=== PATIENT | female | born 1935 | race Hispanic/Latino ===

== ENCOUNTER 2016-08-14 15:51 | Inpatient (IN) | payer MEDICARE, OTHER ==
[2016-08-14] MEDS ORDERED: Sodium Chloride 0.9% 500 ML IV ONE ×2 (17:33→17:46)
[2016-08-14 17:50] LABS: BASO # 0.1 K/uL (0.0-0.2); BASO % 0.5 % (0.0-2.0); EOS # 0.2 K/uL (0.0-0.7); EOS % 2.3 % (0.0-4.0); HEMATOCRIT 32.5 % (34.0-47.0); LYMPH # 0.9 K/uL (1.0-4.3); LYMPH % 8.6 % (20.0-40.0); MEAN CORPUSCULAR HEMOGLOBIN 31.9 pg (27.0-31.0); MEAN CORPUSCULAR HGB CONC 33.7 g/dL (33.0-37.0); MEAN PLATELET VOLUME 7.7 fL (7.2-11.7); MONO # 0.7 K/uL (0.0-0.8); MONO % 7.1 % (0.0-10.0); NRBC % 0.1 % (0.0-2.0); PLATELET COUNT 229 K/uL (130-400); RED CELL DISTRIBUTION WIDTH 13.9 % (11.5-14.5)
[2016-08-14 17:55] LABS: MEAN CELL VOLUME 94.7 fL (81.0-99.0); WHITE BLOOD COUNT 9.9 K/uL (4.8-10.8)
[2016-08-14 17:57] LABS: CHLORIDE 105 mmol/L (98-107); POTASSIUM 4.4 mmol/L (3.6-5.2); SODIUM 147 mmol/L (132-148)
[2016-08-14 18:00] LABS: ALB/GLOB RATIO 1.2 (1.0-2.1); ALKALINE PHOSPHATASE 69 U/L (38-126); ALT/SGPT 22 U/L (9-52); AST/SGOT 16 U/L (14-36); BILIRUBIN,TOTAL 0.3 mg/dL (0.2-1.3); BLOOD UREA NITROGEN 45 mg/dL (7-17); CARBON DIOXIDE 26 mmol/L (22-30); GFR AFRICAN-AMERICAN > 60; GLUCOSE,RANDOM 95 mg/dL (65-105); TOTAL PROTEIN 5.7 g/dL (6.3-8.3)
[2016-08-14 18:01] LABS: CALCIUM 9.1 mg/dl (8.6-10.4)
--- NOTE | 2016-08-14 18:06 | RAD ---
PROCEDURE: CHEST RADIOGRAPH, 1 VIEW HISTORY: SOB COMPARISON: 06/15/2016. FINDINGS: LUNGS: Clear. PLEURA: No pneumothorax or pleural fluid seen. CARDIOVASCULAR: No radiographic findings to suggest acute or significant cardiovascular disease. OSSEOUS STRUCTURES: No significant abnormalities. VISUALIZED UPPER ABDOMEN: Normal. OTHER FINDINGS: None. IMPRESSION: No active disease. No acute/significant interval changes.
[2016-08-14 18:25] LABS: BASOPHIL 2 % (0-2); NEUTROPHIL 84 % (50-75); TOTAL CELLS COUNTED 100
--- NOTE | 2016-08-14 18:31 | C.PDOC ---
History Of Present Illness 80 y/o female sent to ED from rehab center. History limited due to patient condition. No significant pmhx. Nonsmoker. Pt was admitted here 06/2016 secondary to fall at home, pt has been in rehab center ever since. Pt was being assisted to toilet today when she fell asleep/LOC episode. Pt states "I'm having a terrible day" and has no specific complaints. Pt is confused as to her whereabouts and asks where her is. Time Seen by Provider: 08/14/16 17:22 Chief Complaint (Nursing): Syncope History Per: Patient History/Exam Limitations: clinical condition Recent travel outside of the [place]: No - Symptoms Of CVA Recent Head Trauma: No Past Medical History Reviewed: Historical Data, Nursing Documentation, Vital Signs Vital Signs: Last Vital Signs Temp 99.2 F 08/14/16 17:35 Pulse 120 H 08/14/16 17:35 Resp 18 08/14/16 17:35 BP 150/100 H 08/14/16 17:35 Pulse Ox 97 08/14/16 18:35 - Medical History PMH: HTN Family History: States: Unknown Family Hx, Hypertension - Social History Hx Alcohol Use: No Hx Substance Use: No - Immunization History Hx Tetanus Toxoid Vaccination: No Hx Influenza Vaccination: No Hx Pneumococcal Vaccination: No Review Of Systems Review Of Systems: ROS cannot be obtained secondary to pt's inabilty to answer questions. Physical Exam - Physical Exam Appears: Non-toxic, No Acute Distress Skin: Warm, Dry, Rash (diffuse throughout body) Head: Atraumatic, Normacephalic, No Swelling, No Abrasion, No Laceration Oral Mucosa: Moist Neck: Normal ROM, No Midline Cervical Tenderness, No Paracervical Tenderness, Supple Chest: Symmetrical Cardiovascular: Rhythm Regular, No Murmur Respiratory: Normal Breath Sounds, No Rales, No Rhonchi, No Wheezing Gastrointestinal/Abdominal: No Soft (firm), No Tenderness Extremity: Normal ROM Extremity: Bilateral: Atraumatic Neurological/Psych: Other (awake, unable to answer intelligent questions) ED Course And Treatment - Laboratory Results Result Diagrams: 08/14/16 17:45 08/14/16 17:45 O2 Sat by Pulse Oximetry: 97 (on room air) Pulse Ox Interpretation: Normal Progress Note: Plan: EKG, labs, CXR, UA, aspirin. Admit pt for syncope and CHF Medical Decision Making Medical Decision Making: Multiple calls to Dr. Ramirez. spoke with Dr. Stallings, states OneidaVitaliy Ramirez is aware of the patient and wants her admitted to his service. Disposition Discussed With : Tiburcio Ruffin Counseled Patient/Family Regarding: Studies Performed - Disposition Disposition: HOSPITALIZED Disposition Time: 18:50 Condition: SERIOUS - Clinical Impression Clinical Impression: Syncope, CHF (congestive heart failure) - Scribe Statement The provider has reviewed the documentation as recorded by the Beatriz Smallwood Provider Attestation: All medical record entries made by the Beatriz were at my direction and personally dictated by me. I have reviewed the chart and agree that the record accurately reflects my personal performance of the history, physical exam, medical decision making, and the department course for this patient. I have also personally directed, reviewed, and agree with the discharge instructions and disposition. Decision To Admit - Pt Status Changed To: Hospital Disposition Of: Inpatient - Admit Certification Admit to Inpatient:: After my assessment, the patient will require hospitalization for at least two midnights. This is because of the severity of symptoms shown, intensity of services needed, and/or the medical risk in this patient being treated as an outpatient. - InPatient: Physician Admission Certification: I certify that this patient requires 2 or more midnights of care for the following reason:: syncope, elevated troponin, chf, possible [facility] - . Bed Request Type: Telemetry Patient Diagnosis: Syncope, CHF (congestive heart failure)
--- NOTE | 2016-08-14 19:27 | CP.PCM.HP ---
History of Present Illness - History of Present Illness History of Present Illness: 80-year-old female sent to ED from rehab center. History limited due to patient condition. No significant past medical historys. Non-smoker. Patient was admitted here 06/2016 secondary to fall at home, patient has been in the rehab center ever since. Patient was being assisted to toilet today when she fell asleep/LOC episode. Patient states "I am having a terrible day" and has no specific complaint. Patient is confused as to her where abouts and asks where is. Present on Admission - Present on Admission Any Indicators Present on Admission: No Past Patient History - Past Medical History & Family History Past Medical History?: No - Past Social History Smoking Status: Never Smoked - CARDIAC Hx Hypertension: Yes - PULMONARY Hx Respiratory Disorders: No - NEUROLOGICAL Hx Neurological Disorder: No - HEENT Hx HEENT Problems: No - RENAL Hx Chronic Kidney Disease: No - ENDOCRINE/METABOLIC Hx Endocrine Disorders: No - HEMATOLOGICAL/ONCOLOGICAL Hx Blood Disorders: No - INTEGUMENTARY Hx Dermatological Problems: No - MUSCULOSKELETAL/RHEUMATOLOGICAL Hx Musculoskeletal Disorders: No Hx Falls: Yes - GASTROINTESTINAL Hx Gastrointestinal Disorders: No - GENITOURINARY/GYNECOLOGICAL Hx Genitourinary Disorders: No - PSYCHIATRIC Hx Substance Use: No - SURGICAL HISTORY Hx Surgeries: No - ANESTHESIA Hx Anesthesia: No Hx Anesthesia Reactions: No Meds Allergies/Adverse Reactions: Allergies Allergy/AdvReac Type Severity Reaction Status Date / Time No Known Allergies Allergy Verified 06/15/16 16:08 Physical Exam - Constitutional Appears: Well - Head Exam Head Exam: ATRAUMATIC, NORMAL INSPECTION, NORMOCEPHALIC - Eye Exam Eye Exam: EOMI, Normal appearance, PERRL Pupil Exam: NORMAL ACCOMODATION, PERRL - ENT Exam ENT Exam: Mucous Membranes Moist, Normal Exam - Neck Exam Neck exam: Positive for: Normal Inspection - Respiratory Exam Respiratory Exam: Decreased Breath Sounds - Cardiovascular Exam Cardiovascular Exam: REGULAR RHYTHM, +S1, +S2 - GI/Abdominal Exam GI & Abdominal Exam: Diminished Bowel Sounds, Soft - Rectal Exam Rectal Exam: Deferred Results - Vital Signs Recent Vital Signs: Last Vital Signs Temp 99.2 F 08/14/16 17:35 Pulse 120 H 08/14/16 17:35 Resp 18 08/14/16 17:35 BP 150/100 H 08/14/16 17:35 Pulse Ox 97 08/14/16 18:53 - Labs Result Diagrams: 08/20/16 07:30 08/20/16 09:59 Assessment & Plan (1) Acute diastolic (congestive) heart failure Status: Acute (2) Altered mental status Status: Acute (3) Bacteremia Status: Acute (4) CHF (congestive heart failure) Status: Acute (5) Dehydration Status: Acute (6) Fall Status: Acute (7) NSTEMI (non-ST elevation myocardial infarction) Status: Acute (8) Near syncope Status: Acute (9) Sepsis Status: Acute (10) Staph aureus infection Status: Acute (11) Syncope Status: Acute (12) Uncontrolled hypertension Status: Acute (13) Urinary tract infection Status: Acute (14) Dementia Status: Chronic - Assessment and Plan (Free Text) Plan: protonix lovenox cardio neuro med home med ct head prn romix3 asp etcs megace encurage po feeding
--- NOTE | 2016-08-14 20:34 | CP.PCM.CON ---
History of Present Illness - History of Present Illness History of Present Illness: 80 year old with dementia, HTN. admitted from rehab with progressive weakness, near syncope. now with elevated BNP and TNI, observe BP enzymes. treatment medically for NSTEMI, non agressive with poor over prognosis, latest echo at 06/29 with nl LV contractility, no Review of Systems - Review of Systems Systems not reviewed;Unavailable: Dementia - Constitutional Constitutional: Anorexia, Weakness - EENT Eyes: absent: Discharge Ears: absent: Ear Discharge Nose/Mouth/Throat: absent: Epistaxis - Cardiovascular Cardiovascular: absent: Acrocyanosis, Chest Pain, Diaphoresis, Leg Edema, Palpitations, Syncope - Respiratory Respiratory: absent: Cough, Dyspnea, Hemoptysis - Gastrointestinal Gastrointestinal: absent: Abdominal Pain, Diarrhea, Vomiting - Genitourinary Genitourinary: absent: Difficulty Urinating - Reproductive: Female Reproductive:Female: Post Menopausal Past Patient History - Past Medical History & Family History Past Medical History?: No - Past Social History Smoking Status: Never Smoked - CARDIAC Hx Hypertension: Yes - PULMONARY Hx Respiratory Disorders: No - NEUROLOGICAL Hx Neurological Disorder: No - HEENT Hx HEENT Problems: No - RENAL Hx Chronic Kidney Disease: No - ENDOCRINE/METABOLIC Hx Endocrine Disorders: No - HEMATOLOGICAL/ONCOLOGICAL Hx Blood Disorders: No - INTEGUMENTARY Hx Dermatological Problems: No - MUSCULOSKELETAL/RHEUMATOLOGICAL Hx Musculoskeletal Disorders: No Hx Falls: Yes - GASTROINTESTINAL Hx Gastrointestinal Disorders: No - GENITOURINARY/GYNECOLOGICAL Hx Genitourinary Disorders: No - PSYCHIATRIC Hx Substance Use: No - SURGICAL HISTORY Hx Surgeries: No - ANESTHESIA Hx Anesthesia: No Hx Anesthesia Reactions: No Meds Allergies/Adverse Reactions: Allergies Allergy/AdvReac Type Severity Reaction Status Date / Time No Known Allergies Allergy Verified 06/15/16 16:08 - Medications Medications: Current Medications Acetaminophen (Tylenol 325mg Tab) 650 mg PO Q4 PRN PRN Reason: Pain, Mild (1-3) Aspirin (Aspirin) 325 mg PO DAILY [facility] Bacitracin (Bacitracin) 0 gm TOP TID [facility] Enoxaparin Sodium (Lovenox) 30 mg SC DAILY [facility] Home Med (Lisinopril [Qbrelis]) 30 ml PO BID [facility] Magnesium Hydroxide (Milk Of Magnesia) 30 ml PO DAILY [facility] Megestrol Acetate (Megace) 400 mg PO DAILY [facility] Metoprolol Tartrate (Lopressor) 25 mg PO BID [facility] Pantoprazole Sodium (Protonix Ec Tab) 40 mg PO DAILY [facility] Rosuvastatin Calcium (Crestor) 10 mg PO HS [facility] Silver Sulfadiazine (Silvadene 1% 20 Gm) 1 ea TOP BID [facility] Physical Exam - Constitutional Appears: Non-toxic - Head Exam Head Exam: ATRAUMATIC - Eye Exam Eye Exam: EOMI - ENT Exam ENT Exam: Mucous Membranes Moist - Neck Exam Neck exam: Negative for: Lymphadenopathy, Thyromegaly - Respiratory Exam Respiratory Exam: Clear to Auscultation Bilateral. absent: Rales - Cardiovascular Exam Cardiovascular Exam: REGULAR RHYTHM, Systolic Murmur - GI/Abdominal Exam GI & Abdominal Exam: Normal Bowel Sounds. absent: Organomegaly - Rectal Exam Rectal Exam: Deferred - Extremities Exam Extremities exam: Positive for: normal capillary refill. Negative for: calf tenderness - Neurological Exam Neurological exam: Alert, Oriented x3 - Psychiatric Exam Psychiatric exam: Normal Mood - Skin Skin Exam: Dry Results - Vital Signs Recent Vital Signs: Last Vital Signs Temp 99.2 F 08/14/16 17:35 Pulse 120 H 08/14/16 17:35 Resp 18 08/14/16 17:35 BP 150/100 H 08/14/16 17:35 Pulse Ox 97 08/14/16 18:53 - Labs Result Diagrams: 08/15/16 11:06 08/15/16 11:06 Assessment & Plan (1) CHF (congestive heart failure) Status: Acute Comment: medical treatment, supportive symptomatic (2) NSTEMI (non-ST elevation myocardial infarction) Status: Acute Comment: probable LV diastolic acute over chronic (3) Dementia Status: Chronic
[2016-08-14 21:08] LABS: RBC URINE < 1 /hpf (0-3); URINE BILIRUBIN NEGATIVE (NEGATIVE); URINE BLOOD NEGATIVE (NEGATIVE); URINE GLUCOSE (UA) NORMAL (Normal); URINE KETONE NEGATIVE (NEGATIVE); URINE LEUKOCYTE ESTERASE NEG Leu/uL (Negative); URINE PROTEIN NEGATIVE (NEGATIVE); URINE UROBILINOGEN NORMAL mg/dL (0.2-1.0); WBC URINE 1 /hpf (0-5)
[2016-08-14 21:09] LABS: URINE COLOR YELLOW (YELLOW)
[2016-08-14 22:48] LABS: FREE T4 1.38 ng/dL (0.78-2.19)
[2016-08-14 23:02] LABS: THYROID STIMULATING HORMONE 4.26 mIU/L (0.46-4.68)
[2016-08-14 23:37] LABS: FOLATE 17.2 ng/mL
--- NOTE | 2016-08-15 08:23 | CT ---
PROCEDURE: CT HEAD WITHOUT CONTRAST. HISTORY: R/O BLEED. Headache. COMPARISON: None available. TECHNIQUE: Axial computed tomography images were obtained through the head/brain without intravenous contrast. Radiation dose: Total exam DLP = 1555 mGy-cm. This CT exam was performed using one or more of the following dose reduction techniques: Automated exposure control, adjustment of the mA and/or kV according to patient size, and/or use of iterative reconstruction technique. FINDINGS: HEMORRHAGE: No intracranial hemorrhage. BRAIN: No mass effect or edema. Scattered focal lucencies in the subcortical and periventricular white matter suggestive for chronic microvascular ischemic change. Moderate volume loss consistent with atrophy. VENTRICLES: Unremarkable. No hydrocephalus. CALVARIUM: Unremarkable. PARANASAL SINUSES: Unremarkable as visualized. No significant inflammatory changes. MASTOID AIR CELLS: Unremarkable as visualized. No inflammatory changes. OTHER FINDINGS: Moderate atherosclerotic calcification. IMPRESSION: Age related atrophy and chronic white matter ischemic changes. No acute intracranial abnormality. If focal neurologic deficit persists, consider MRI. These findings were preliminarily reported at 10:04 p.m. on 08/14/[address] Nando Barry from [facility].
[2016-08-15] MEDS ORDERED: LISINOPRIL PO SCH (10:00)
[2016-08-15] MEDS: Bacitracin Ointment 30 GM TUBE TOP SCH ×2 (10:45→13:21)
[2016-08-15] MEDS: Enoxaparin 30 mg Syringe SC SCH (10:50)
[2016-08-15] MEDS: Pantoprazole 40 mg EC Tab PO SCH (10:51)
[2016-08-15] MEDS: Magnesium Hydroxide Susp 30 ml UD PO SCH (10:51)
[2016-08-15] MEDS: Silver Sulfadiazine 1% Cream (20 gm) TOP SCH (10:51)
[2016-08-15] MEDS: Megestrol Acetate 40 mg/ml Cup PO SCH (10:51)
[2016-08-15 11:12] LABS: HEMATOCRIT 28.6 % (34.0-47.0); MEAN CELL VOLUME 94.2 fL (81.0-99.0); MEAN CORPUSCULAR HEMOGLOBIN 30.9 pg (27.0-31.0); MEAN CORPUSCULAR HGB CONC 32.8 g/dL (33.0-37.0); MEAN PLATELET VOLUME 7.8 fL (7.2-11.7); RED CELL DISTRIBUTION WIDTH 13.9 % (11.5-14.5); WHITE BLOOD COUNT 10.6 K/uL (4.8-10.8)
[2016-08-15 11:49] LABS: CHLORIDE 106 mmol/L (98-107); SODIUM 143 mmol/L (132-148)
[2016-08-15 11:51] LABS: ALKALINE PHOSPHATASE 54 U/L (38-126); AST/SGOT 15 U/L (14-36); BILIRUBIN,TOTAL 0.2 mg/dL (0.2-1.3); BLOOD UREA NITROGEN 44 mg/dL (7-17); CARBON DIOXIDE 27 mmol/L (22-30); CHOLESTEROL 101 mg/dL (0-199); GFR AFRICAN-AMERICAN > 60; GLUCOSE,RANDOM 96 mg/dL (65-105); TOTAL PROTEIN 4.7 g/dL (6.3-8.3)
[2016-08-15 11:52] LABS: ALT/SGPT 20 U/L (9-52); CALCIUM 8.4 mg/dl (8.6-10.4)
--- NOTE | 2016-08-15 14:48 | CP.PCM.PN ---
<Shelli Nunes - Last Filed: 08/15/16 14:39> Subjective - Date & Time of Evaluation Date of Evaluation: 08/15/16 Time of Evaluation: 11:35 - Subjective Subjective: Medicine Progress Note- Dr Oneida Green's service Patient seen and examined. Per ED note, the patient was sent to hospital from [facility] after she had an episode of syncope. Patient states that she does not remember falling at the rehab. She is alert and oriented to person and place but does not know the month or the year. Patient is wondering "why has this happened to me" and has a flat affect. On previous admission the patient was evaluated by psychiatrist for capacity level and was determined not to have decision making capacity due to her underlying dementia. Denies fever, chest pain and shortness of breath. Objective - Vital Signs/Intake and Output Vital Signs (last 24 hours): Temp Pulse Resp BP Pulse Ox 98.3 F 103 H 17 149/83 97 08/15/16 07:30 08/15/16 07:30 08/15/16 07:30 08/15/16 10:46 08/15/16 07:30 Intake and Output: 08/15/16 08/15/16 06:59 18:59 Intake Total 400 Balance 400 - Medications Medications: Current Medications Acetaminophen (Tylenol 325mg Tab) 650 mg PO Q4 PRN PRN Reason: Pain, Mild (1-3) Aspirin (Aspirin) 325 mg PO DAILY [facility] Last Admin: 08/15/16 10:45 Dose: 325 mg Bacitracin (Bacitracin) 0 gm TOP TID [facility] Last Admin: 08/15/16 10:45 Dose: 1 applic Enoxaparin Sodium (Lovenox) 30 mg SC DAILY [facility] Last Admin: 08/15/16 10:50 Dose: 30 mg Home Med (Lisinopril [Qbrelis]) 30 ml PO BID [facility] Magnesium Hydroxide (Milk Of Magnesia) 30 ml PO DAILY [facility] Last Admin: 08/15/16 10:51 Dose: 30 ml Megestrol Acetate (Megace) 400 mg PO DAILY [facility] Last Admin: 08/15/16 10:51 Dose: 400 mg Metoprolol Tartrate (Lopressor) 25 mg PO BID [facility] Last Admin: 08/15/16 10:46 Dose: 25 mg Ondansetron HCl (Zofran Inj) 4 mg IVP Q6H PRN PRN Reason: Nausea/Vomiting Pantoprazole Sodium (Protonix Ec Tab) 40 mg PO DAILY [facility] Last Admin: 08/15/16 10:51 Dose: 40 mg Rosuvastatin Calcium (Crestor) 10 mg PO HS [facility] Last Admin: 08/14/16 22:34 Dose: 10 mg Silver Sulfadiazine (Silvadene 1% 20 Gm) 1 ea TOP BID [facility] Last Admin: 08/15/16 10:51 Dose: 1 applic - Labs Labs: 08/15/16 11:06 08/15/16 11:06 PT 11.3 SECONDS (9.7-12.2) 08/15/16 00:22 INR 1.0 08/15/16 00:22 APTT 36 SECONDS (21-34) H 08/15/16 00:22 - Constitutional Appears: Non-toxic, No Acute Distress - Head Exam Head Exam: ATRAUMATIC, NORMOCEPHALIC - Eye Exam Eye Exam: EOMI, Normal appearance - ENT Exam ENT Exam: Mucous Membranes Moist - Respiratory Exam Respiratory Exam: Clear to Ausculation Bilateral, NORMAL BREATHING PATTERN. absent: Rales, Rhonchi, Wheezes, Respiratory Distress - Cardiovascular Exam Cardiovascular Exam: REGULAR RHYTHM, +S1, +S2 - GI/Abdominal Exam GI & Abdominal Exam: Soft, Normal Bowel Sounds. absent: Distended, Firm, Guarding, Rigid - Extremities Exam Extremities Exam: Normal Inspection. absent: Pedal Edema - Neurological Exam Neurological Exam: Alert, Awake. absent: Oriented x3 - Psychiatric Exam Psychiatric exam: Flat Affect, Normal Mood - Skin Skin Exam: Dry, Intact, Normal Color, Warm Assessment and Plan - Assessment and Plan (Free Text) Assessment: (1) NSTEMI LUDY 0.367--> 0.385--> 0.[address] Ruffin consulted- per recommendations treat medically for NSTEMI , non aggressive with poor over prognosis ASA 325mg PO daily Metoprolol tartrate 25mg PO BID Crestor 10mg PO HS (2) CHF 06/15/16 ECHO LV EF 57%, diastolic dysfunction, hypertensive heart disease BNP 4570 Lasix 40mg IV daily (3) HTN Metoprolol tartrate 25mg PO BID Lasix 40mg IV daily Monitor (4) Dementia (5) Prophylactic measures SCDs Lovenox 30mg SC daily Protonix 40mg PO daily All management and orders per Dr Oneida green. Discussed with attending. <Azeb Green S - Last Filed: 08/15/16 22:57> Objective - Vital Signs/Intake and Output Vital Signs (last 24 hours): Temp Pulse Resp BP Pulse Ox 98.1 F 92 H 20 200/109 H 100 08/15/16 15:39 08/15/16 15:39 08/15/16 15:39 08/15/16 20:22 08/15/16 15:39 Intake and Output: 08/15/16 08/16/16 18:59 06:59 Intake Total 400 Balance 400 - Medications Medications: Current Medications Acetaminophen (Tylenol 325mg Tab) 650 mg PO Q4 PRN PRN Reason: Pain, Mild (1-3) Aspirin (Aspirin) 325 mg PO DAILY [facility] Last Admin: 08/15/16 10:45 Dose: 325 mg Bacitracin (Bacitracin) 0 gm TOP TID [facility] Last Admin: 08/15/16 10:45 Dose: 1 applic Enoxaparin Sodium (Lovenox) 30 mg SC DAILY [facility] Last Admin: 08/15/16 10:50 Dose: 30 mg Furosemide (Lasix) 40 mg IVP DAILY [facility] Last Admin: 08/15/16 16:09 Dose: 40 mg Home Med (Lisinopril [Qbrelis]) 30 ml PO BID [facility] Lisinopril (Zestril) 10 mg PO DAILY [facility] Last Admin: 08/15/16 20:22 Dose: 10 mg Magnesium Hydroxide (Milk Of Magnesia) 30 ml PO DAILY [facility] Last Admin: 08/15/16 10:51 Dose: 30 ml Megestrol Acetate (Megace) 400 mg PO DAILY [facility] Last Admin: 08/15/16 10:51 Dose: 400 mg Metoprolol Tartrate (Lopressor) 25 mg PO BID [facility] Last Admin: 08/15/16 20:22 Dose: 25 mg Ondansetron HCl (Zofran Inj) 4 mg IVP Q6H PRN PRN Reason: Nausea/Vomiting Pantoprazole Sodium (Protonix Ec Tab) 40 mg PO DAILY [facility] Last Admin: 08/15/16 10:51 Dose: 40 mg Rosuvastatin Calcium (Crestor) 10 mg PO [facility] Last Admin: 04/04/17 22:34 Dose: 10 mg Silver Sulfadiazine (Silvadene 1% 20 Gm) 1 ea TOP BID [facility] Last Admin: 08/15/16 10:51 Dose: 1 applic - Labs Labs: 08/15/16 11:06 08/15/16 11:06 PT 11.3 SECONDS (9.7-12.2) 08/15/16 00:22 INR 1.0 08/15/16 00:22 APTT 36 SECONDS (21-34) H 08/15/16 00:22 Attending/Attestation - Attestation I have personally seen and examined this patient.: Yes I have fully participated in the care of the patient.: Yes I have reviewed all pertinent clinical information, including history, physical exam and plan: Yes Notes (Text): 08/15/16 22:57 case seen and discussed with staff and resident mx as agreed
--- NOTE | 2016-08-15 16:52 | CARD ---
APPROVED REPORT EKG Measurement Heart [id number] <Conclusion> Sinus tachycardia Inferior infarct, age undetermined Anterior infarct, age undetermined Abnormal ECG
--- NOTE | 2016-08-15 17:00 | CP.PCM.PN ---
Subjective - Date & Time of Evaluation Date of Evaluation: 08/15/16 Time of Evaluation: 13:00 - Subjective Subjective: no LOC, no sob try to avoid lasix, TNI is trending down, on medical treatment Objective - Vital Signs/Intake and Output Vital Signs (last 24 hours): Temp Pulse Resp BP Pulse Ox 98.1 F 92 H 20 146/73 100 08/15/16 15:39 08/15/16 15:39 08/15/16 15:39 08/15/16 16:09 08/15/16 15:39 Intake and Output: 08/15/16 08/15/16 06:59 18:59 Intake Total 400 Balance 400 - Medications Medications: Current Medications Acetaminophen (Tylenol 325mg Tab) 650 mg PO Q4 PRN PRN Reason: Pain, Mild (1-3) Aspirin (Aspirin) 325 mg PO DAILY [facility] Last Admin: 08/15/16 10:45 Dose: 325 mg Bacitracin (Bacitracin) 0 gm TOP TID [facility] Last Admin: 08/15/16 10:45 Dose: 1 applic Enoxaparin Sodium (Lovenox) 30 mg SC DAILY [facility] Last Admin: 08/15/16 10:50 Dose: 30 mg Furosemide (Lasix) 40 mg IVP DAILY [facility] Last Admin: 08/15/16 16:09 Dose: 40 mg Home Med (Lisinopril [Qbrelis]) 30 ml PO BID [facility] Magnesium Hydroxide (Milk Of Magnesia) 30 ml PO DAILY [facility] Last Admin: 08/15/16 10:51 Dose: 30 ml Megestrol Acetate (Megace) 400 mg PO DAILY [facility] Last Admin: 08/15/16 10:51 Dose: 400 mg Metoprolol Tartrate (Lopressor) 25 mg PO BID [facility] Last Admin: 08/15/16 10:46 Dose: 25 mg Ondansetron HCl (Zofran Inj) 4 mg IVP Q6H PRN PRN Reason: Nausea/Vomiting Pantoprazole Sodium (Protonix Ec Tab) 40 mg PO DAILY [facility] Last Admin: 08/15/16 10:51 Dose: 40 mg Rosuvastatin Calcium (Crestor) 10 mg PO HS [facility] Last Admin: 08/14/16 22:34 Dose: 10 mg Silver Sulfadiazine (Silvadene 1% 20 Gm) 1 ea TOP BID [facility] Last Admin: 08/15/16 10:51 Dose: 1 applic - Labs Labs: 08/15/16 11:06 08/15/16 11:06 PT 11.3 SECONDS (9.7-12.2) 08/15/16 00:22 INR 1.0 08/15/16 00:22 APTT 36 SECONDS (21-34) H 08/15/16 00:22 - Constitutional Appears: Non-toxic - Head Exam Head Exam: ATRAUMATIC - Eye Exam Eye Exam: EOMI - ENT Exam ENT Exam: Mucous Membranes Moist - Neck Exam Neck Exam: absent: Lymphadenopathy, Thyromegaly - Respiratory Exam Respiratory Exam: Clear to Ausculation Bilateral. absent: Rales - Cardiovascular Exam Cardiovascular Exam: REGULAR RHYTHM, Murmur - GI/Abdominal Exam GI & Abdominal Exam: Normal Bowel Sounds. absent: Organomegaly - Rectal Exam Rectal Exam: Deferred - Extremities Exam Extremities Exam: Normal Capillary Refill. absent: Calf Tenderness - Neurological Exam Neurological Exam: Alert - Psychiatric Exam Psychiatric exam: Normal Mood - Skin Skin Exam: Dry Assessment and Plan (1) CHF (congestive heart failure) Status: Acute (2) NSTEMI (non-ST elevation myocardial infarction) Status: Acute (3) Dementia Status: Chronic
--- NOTE | 2016-08-15 18:06 | CP.PCM.PN ---
Subjective - Date & Time of Evaluation Date of Evaluation: 08/15/16 Time of Evaluation: 11:40 - Subjective Subjective: clinically same on iv lasix s/p cardio Dr Laly sanchez Objective - Vital Signs/Intake and Output Vital Signs (last 24 hours): Temp Pulse Resp BP Pulse Ox 98.1 F 92 H 20 146/73 100 08/15/16 15:39 08/15/16 15:39 08/15/16 15:39 08/15/16 16:09 08/15/16 15:39 Intake and Output: 08/15/16 08/15/16 06:59 18:59 Intake Total 400 Balance 400 - Medications Medications: Current Medications Acetaminophen (Tylenol 325mg Tab) 650 mg PO Q4 PRN PRN Reason: Pain, Mild (1-3) Aspirin (Aspirin) 325 mg PO DAILY [facility] Last Admin: 08/15/16 10:45 Dose: 325 mg Bacitracin (Bacitracin) 0 gm TOP TID [facility] Last Admin: 08/15/16 10:45 Dose: 1 applic Enoxaparin Sodium (Lovenox) 30 mg SC DAILY [facility] Last Admin: 08/15/16 10:50 Dose: 30 mg Furosemide (Lasix) 40 mg IVP DAILY [facility] Last Admin: 08/15/16 16:09 Dose: 40 mg Home Med (Lisinopril [Qbrelis]) 30 ml PO BID [facility] Lisinopril (Zestril) 10 mg PO DAILY [facility] Magnesium Hydroxide (Milk Of Magnesia) 30 ml PO DAILY [facility] Last Admin: 08/15/16 10:51 Dose: 30 ml Megestrol Acetate (Megace) 400 mg PO DAILY [facility] Last Admin: 08/15/16 10:51 Dose: 400 mg Metoprolol Tartrate (Lopressor) 25 mg PO BID [facility] Last Admin: 08/15/16 10:46 Dose: 25 mg Ondansetron HCl (Zofran Inj) 4 mg IVP Q6H PRN PRN Reason: Nausea/Vomiting Pantoprazole Sodium (Protonix Ec Tab) 40 mg PO DAILY [facility] Last Admin: 08/15/16 10:51 Dose: 40 mg Rosuvastatin Calcium (Crestor) 10 mg PO HS [facility] Last Admin: 08/14/16 22:34 Dose: 10 mg Silver Sulfadiazine (Silvadene 1% 20 Gm) 1 ea TOP BID [facility] Last Admin: 08/15/16 10:51 Dose: 1 applic - Labs Labs: 08/15/16 11:06 08/15/16 11:06 PT 11.3 SECONDS (9.7-12.2) 08/15/16 00:22 INR 1.0 08/15/16 00:22 APTT 36 SECONDS (21-34) H 08/15/16 00:22 - Constitutional Appears: Well - Head Exam Head Exam: ATRAUMATIC, NORMAL INSPECTION, NORMOCEPHALIC - Eye Exam Eye Exam: EOMI, Normal appearance, PERRL Pupil Exam: NORMAL ACCOMODATION, PERRL - ENT Exam ENT Exam: Mucous Membranes Moist, Normal Exam - Neck Exam Neck Exam: Full ROM, Normal Inspection. absent: Lymphadenopathy - Respiratory Exam Respiratory Exam: Decreased Breath Sounds - Cardiovascular Exam Cardiovascular Exam: REGULAR RHYTHM, +S1, +S2 - GI/Abdominal Exam GI & Abdominal Exam: Soft, Diminished Bowel Sounds - Rectal Exam Rectal Exam: Deferred - Neurological Exam Neurological Exam: Alert, Awake, Oriented x3 Assessment and Plan (1) Acute diastolic (congestive) heart failure Status: Acute (2) Altered mental status Status: Acute (3) Bacteremia Status: Acute (4) CHF (congestive heart failure) Status: Acute (5) Dehydration Status: Acute (6) Fall Status: Acute (7) NSTEMI (non-ST elevation myocardial infarction) Status: Acute (8) Near syncope Status: Acute (9) Sepsis Status: Acute (10) Staph aureus infection Status: Acute (11) Syncope Status: Acute (12) Uncontrolled hypertension Status: Acute (13) Urinary tract infection Status: Acute (14) Dementia Status: Chronic - Assessment and Plan (Free Text) Plan: [place] iv lasix cardio Dr Ruffin on board protonix lovenox f/u cardiac enzymes and labs f/u BCx mx as ordered
--- NOTE | 2016-08-16 07:20 | CON ---
DATE: 08/15/2016 ATTENDING PHYSICIAN: Fede Ramirez MD. The patient is room #663, bed A. REASON FOR CONSULTATION: Syncope. CHIEF COMPLAINT: The patient was brought in to [facility] with a history of syncopal attack in the rehab place. From neurological point, I was called in to evaluate her for further management. HISTORY OF PRESENT ILLNESS: The patient is thinly built, right-handed, 80-year-old female brought in to [facility] with a history of syncopal attack while she was transferring from the bed to the commode. This episode - not associating with tonic-clonic activities. No history of fall, no history of bowel or bladder incontinence at the scene. As per the history, no similar episodes happened in the past. PAST MEDICAL HISTORY: Hypertension. ALLERGIES: No known allergies. PERSONAL HISTORY: Denies smoking or alcohol use. REVIEW OF SYSTEMS: As per H and P. MEDICATIONS: Aspirin, Crestor, Lopressor, Lovenox, Megace, milk of magnesia, Protonix, and Tylenol p.r.n. PHYSICAL EXAMINATION: VITAL SIGNS: Blood pressure 147/81, mean arterial pressure of 103. Respiratory rate is 16, temperature afebrile. NECK: Supple. No carotid bruit. HEART: Sounds regular with a systolic murmur. EXTREMITIES: No edema legs. There is significant distal muscle group atrophy, more pronounced in her both upper extremities, hand muscle groups. No fasciculation at rest. NEUROLOGIC EXAMINATION: Verbally arousable on calling her name. Initially, she was a little bit apprehensive. After a few minutes, the patient became very cooperative. She was able to follow commands. She was able to say 1-word answers for my questions. She knows she is in the hospital. She knows the year. CRANIAL NERVE EXAMINATION: Left palpebral fissure is smaller to compare with the right side. Responds to visual threat. Pupils react to light. Extraocular movements normal. No nystagmus, no facial sensory deficit, no facial asymmetry. Hearing is normal. Tongue is midline. Good gag. MOTOR EXAMINATION: Somewhat pain limited exam in the right lower extremity noted. DEEP TENDON REFLEXES: Absent throughout with plantars equivocal response on the right side. Left side was upgoing. 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 COORDINATION: [id number] test is intact. GAIT: Deferred at this time. CONCLUSION: Upon reviewing her history and neurological examination, the patient is presenting with a syncopal attack, which from neurological point of view, nonconvulsive seizures or nonepileptiform seizures should be ruled out. However, other possible causes including vertebrobasilar insufficiency should be worked out. From cardiology point of view, the patient should be worked up for myocardial infarction. The patient seems to be dehydrated, and the patient is also presenting with bilateral dista symmetric sensory and motor neuropathy. LABORATORY DATA: Workup: WBC 9.9, hemoglobin 11.2, hematocrit 32. platelets 229. PT 11.3, INR 1.0. Sodium 147, potassium 4.4, chloride 105, bicarbonate 26 , BUN 45, creatinine 0.8. GFR more than 60. Random glucose 95. Troponin level initially 0.3670. The latest on is 0.3850. BNP 4570. Prolactin level 10.4. TSH of 4.26, B12 ____ 473. Urinalysis seems to be normal. EKG shows sinus tachycardia with inferior, as well as anterior wall infarct, undetermined age, as per the report. CT of the head, which is reviewed by me, shows no acute pathology except diffuse atrophy and periventricular ischemic changes noted. RECOMMENDATIONS: 1. EEG/carotid Doppler, and MRI of the brain is requested. 2. Hydration. 3. Abnormal blood workup, and cardiology consult, and followup is also recommended. When medically stable, the patient should get out of the bed and physical therapy should be initiated. The patient will be followed closely with you. Abdiaziz Doherty MD cc: [id number] TT: 08/15/2016 09:43:32 Confirmation # [id number] Dictation # [id number] dede 08/16/2016 06:18:52 SADIE
--- NOTE | 2016-08-16 08:05 | PN ---
DATE: 08/16/2016 NEUROLOGICAL PROBLEM: Syncopal attack. PHYSICAL EXAMINATION: VITAL SIGNS: Blood pressure 138/78, mean arterial pressure 98, respiratory rate 16, temperature 98.1 with a pulse rate 90. NEUROLOGIC: The patient is arousable. Speech is fluent. She follows 1-step command. He feels tire d. She follows commands. No witnessed syncopal attack since she has been admitted. Her examination is unchanged to compare with yesterday's exam. The patient should be hydrated. The patient should be followed by mechanical shop laborer and workup is pending from neurological point of view. The patient will be followed closely with you. Abdiaziz Doherty MD cc: [id number] TT: 08/16/2016 08:04:45 Confirmation # [id number] Dictation # [id number]
[2016-08-16 08:07] LABS: BASO % 0.4 % (0.0-2.0); EOS # 0.4 K/uL (0.0-0.7); EOS % 4.3 % (0.0-4.0); HEMATOCRIT 30.6 % (34.0-47.0); LYMPH # 0.8 K/uL (1.0-4.3); LYMPH % 9.4 % (20.0-40.0); MEAN CORPUSCULAR HEMOGLOBIN 30.9 pg (27.0-31.0); MEAN CORPUSCULAR HGB CONC 32.9 g/dL (33.0-37.0); MEAN PLATELET VOLUME 7.7 fL (7.2-11.7); MONO # 0.7 K/uL (0.0-0.8); MONO % 7.6 % (0.0-10.0); PLATELET COUNT 232 K/uL (130-400); RED CELL DISTRIBUTION WIDTH 13.2 % (11.5-14.5); WHITE BLOOD COUNT 8.8 K/uL (4.8-10.8)
[2016-08-16 08:22] LABS: CHLORIDE 103 mmol/L (98-107)
[2016-08-16 08:23] LABS: POTASSIUM 3.9 mmol/L (3.6-5.2); SODIUM 141 mmol/L (132-148)
[2016-08-16 08:25] LABS: ALB/GLOB RATIO 1.2 (1.0-2.1); ALKALINE PHOSPHATASE 61 U/L (38-126); AST/SGOT 14 U/L (14-36); BILIRUBIN,TOTAL 0.7 mg/dL (0.2-1.3); CARBON DIOXIDE 26 mmol/L (22-30); GFR AFRICAN-AMERICAN > 60; TOTAL PROTEIN 5.3 g/dL (6.3-8.3)
[2016-08-16 08:26] LABS: ALT/SGPT 19 U/L (9-52); BLOOD UREA NITROGEN 44 mg/dL (7-17); CALCIUM 8.3 mg/dl (8.6-10.4); GLUCOSE,RANDOM 94 mg/dL (65-105)
[2016-08-16] MEDS: Magnesium Hydroxide Susp 30 ml UD PO SCH (09:29)
[2016-08-16] MEDS: Enoxaparin 30 mg Syringe SC SCH (09:29)
[2016-08-16] MEDS: Megestrol Acetate 40 mg/ml Cup PO SCH (09:29)
[2016-08-16] MEDS: Pantoprazole 40 mg EC Tab PO SCH (09:30)
[2016-08-16] MEDS: Silver Sulfadiazine 1% Cream (20 gm) TOP SCH ×2 (09:31→17:47)
[2016-08-16] MEDS: Bacitracin Ointment 30 GM TUBE TOP SCH ×3 (09:31→17:47)
[2016-08-16 09:39] LABS: EOSINOPHIL 5 % (0-4); NEUTROPHIL 79 % (50-75); TOTAL CELLS COUNTED 100
[2016-08-16] MEDS: Vancomycin 750mg/D5W 150 ml 150 ML IVPB SCH (11:00)
--- NOTE | 2016-08-16 14:11 | CP.PCM.PN ---
<Syed Robledo - Last Filed: 08/16/16 15:33> Subjective - Date & Time of Evaluation Date of Evaluation: 08/16/16 Time of Evaluation: 08:00 - Subjective Subjective: Dr. Tk Green note: Patient is seen and examined in room. She is resting bed and denies having any pain. The nurse reports she is only eating a little handful at a time. Patient also reports having no appetite. Objective - Vital Signs/Intake and Output Vital Signs (last 24 hours): Temp Pulse Resp BP Pulse Ox 97.8 F 90 20 137/81 96 08/16/16 07:00 08/16/16 08:10 08/16/16 07:00 08/16/16 09:30 08/16/16 07:00 - Medications Medications: Current Medications Acetaminophen (Tylenol 325mg Tab) 650 mg PO Q4 PRN PRN Reason: Pain, Mild (1-3) Aspirin (Aspirin) 325 mg PO DAILY [facility] Last Admin: 08/16/16 09:30 Dose: 325 mg Bacitracin (Bacitracin) 0 gm TOP TID [facility] Last Admin: 08/16/16 13:22 Dose: 1 applic Enoxaparin Sodium (Lovenox) 30 mg SC DAILY [facility] Last Admin: 08/16/16 09:29 Dose: 30 mg Furosemide (Lasix) 40 mg IVP DAILY [facility] Last Admin: 08/16/16 09:30 Dose: 40 mg Home Med (Lisinopril [Qbrelis]) 30 ml PO BID [facility] Vancomycin HCl (Vancocin 750mg/D5w 150 Ml) 150 mls @ 100 mls/hr IVPB Q24H [facility] Stop: 08/21/16 10:01 Last Admin: 08/16/16 11:00 Dose: 100 mls/hr Lisinopril (Zestril) 10 mg PO DAILY [facility] Last Admin: 08/15/16 20:22 Dose: 10 mg Magnesium Hydroxide (Milk Of Magnesia) 30 ml PO DAILY [facility] Last Admin: 08/16/16 09:29 Dose: 30 ml Megestrol Acetate (Megace) 400 mg PO DAILY [facility] Last Admin: 08/16/16 09:29 Dose: 400 mg Metoprolol Tartrate (Lopressor) 25 mg PO BID [facility] Last Admin: 08/16/16 09:29 Dose: 25 mg Ondansetron HCl (Zofran Inj) 4 mg IVP Q6H PRN PRN Reason: Nausea/Vomiting Pantoprazole Sodium (Protonix Ec Tab) 40 mg PO DAILY [facility] Last Admin: 08/16/16 09:30 Dose: 40 mg Rosuvastatin Calcium (Crestor) 10 mg PO HS [facility] Last Admin: 08/14/16 22:34 Dose: 10 mg Silver Sulfadiazine (Silvadene 1% 20 Gm) 1 ea TOP BID [facility] Last Admin: 08/16/16 09:31 Dose: 1 applic - Labs Labs: 08/16/16 07:51 08/16/16 07:51 PT 11.3 SECONDS (9.7-12.2) 08/15/16 00:22 INR 1.0 08/15/16 00:22 APTT 36 SECONDS (21-34) H 08/15/16 00:22 - Constitutional Appears: Non-toxic, No Acute Distress, Cachectic, Chronically Ill - Head Exam Head Exam: NORMAL INSPECTION - Eye Exam Eye Exam: Normal appearance Pupil Exam: NORMAL ACCOMODATION - Respiratory Exam Respiratory Exam: Clear to Ausculation Bilateral. absent: Rhonchi, Wheezes - Cardiovascular Exam Cardiovascular Exam: REGULAR RHYTHM, RRR, +S1, +S2. absent: Gallop, Rubs - GI/Abdominal Exam GI & Abdominal Exam: Soft, Normal Bowel Sounds. absent: Tenderness - Extremities Exam Extremities Exam: absent: Pedal Edema - Skin Skin Exam: Dry Assessment and Plan - Assessment and Plan (Free Text) Assessment: Patient has gram positive in blood, have ordered Vancomycin 750mg Q24 IV due to low body weight. Dr. Erwin consulted. Follow up sensitivity. (1) NSTEMI 08/16: Continue managment, Aspirin 325mg, Crestor 10mg, and Aspirin 325mg. Previous note LUDY 0.367--> 0.385--> 0.[address] Ruffin consulted- per recommendations treat medically for NSTEMI , non aggressive with poor over prognosis ASA 325mg PO daily Metoprolol tartrate 25mg PO BID Crestor 10mg PO HS (2) CHF 06/15/16 ECHO LV EF 57%, diastolic dysfunction, hypertensive heart disease BNP 4570 Lasix 40mg IV daily (3) HTN Metoprolol tartrate 25mg PO BID Lasix 40mg IV daily Monitor (4) Dementia-Failure to thrive Megace for appetite stimulant. Per Dr. Green, a consult for Dr. Eason was put in. However patient will need to be more stable medically before they can according to the GI Fellow Dr. Morrow (5) Prophylactic measures SCDs Lovenox 30mg SC daily Protonix 40mg PO daily All management and orders per Dr Oneida green. Discussed with attending. <Azeb Green - Last Filed: 08/16/16 17:58> Objective - Vital Signs/Intake and Output Vital Signs (last 24 hours): Temp Pulse Resp BP Pulse Ox 97.6 F 89 18 140/78 96 08/16/16 15:32 08/16/16 15:32 08/16/16 15:32 08/16/16 17:46 08/16/16 15:32 Intake and Output: 08/16/16 08/16/16 06:59 18:59 Intake Total 750 Balance 750 - Medications Medications: Current Medications Acetaminophen (Tylenol 325mg Tab) 650 mg PO Q4 PRN PRN Reason: Pain, Mild (1-3) Aspirin (Aspirin) 325 mg PO DAILY [facility] Last Admin: 08/16/16 09:30 Dose: 325 mg Bacitracin (Bacitracin) 0 gm TOP TID [facility] Last Admin: 08/16/16 17:47 Dose: 1 applic Enoxaparin Sodium (Lovenox) 30 mg SC DAILY [facility] Last Admin: 08/16/16 09:29 Dose: 30 mg Furosemide (Lasix) 40 mg IVP DAILY [facility] Last Admin: 08/16/16 09:30 Dose: 40 mg Home Med (Lisinopril [Qbrelis]) 30 ml PO BID [facility] Vancomycin HCl (Vancocin 750mg/D5w 150 Ml) 150 mls @ 100 mls/hr IVPB Q24H [facility] Stop: 08/21/16 10:01 Last Admin: 08/16/16 11:00 Dose: 100 mls/hr Lisinopril (Zestril) 10 mg PO DAILY [facility] Last Admin: 08/16/16 10:28 Dose: 10 mg Magnesium Hydroxide (Milk Of Magnesia) 30 ml PO DAILY [facility] Last Admin: 08/16/16 09:29 Dose: 30 ml Megestrol Acetate (Megace) 400 mg PO DAILY [facility] Last Admin: 08/16/16 09:29 Dose: 400 mg Metoprolol Tartrate (Lopressor) 25 mg PO BID [facility] Last Admin: 08/16/16 17:46 Dose: 25 mg Ondansetron HCl (Zofran Inj) 4 mg IVP Q6H PRN PRN Reason: Nausea/Vomiting Pantoprazole Sodium (Protonix Ec Tab) 40 mg PO DAILY [facility] Last Admin: 08/16/16 09:30 Dose: 40 mg Rosuvastatin Calcium (Crestor) 10 mg PO HS [facility] Last Admin: 08/14/16 22:34 Dose: 10 mg Silver Sulfadiazine (Silvadene 1% 20 Gm) 1 ea TOP BID [facility] Last Admin: 08/16/16 17:47 Dose: 1 applic - Labs Labs: 08/16/16 07:51 08/16/16 07:51 PT 11.3 SECONDS (9.7-12.2) 08/15/16 00:22 INR 1.0 08/15/16 00:22 APTT 36 SECONDS (21-34) H 08/15/16 00:22 Attending/Attestation - Attestation I have personally seen and examined this patient.: Yes I have fully participated in the care of the patient.: Yes I have reviewed all pertinent clinical information, including history, physical exam and plan: Yes Notes (Text): 08/16/16 17:58 case seen and discussed [facility] staff and resident mx as agreed
--- NOTE | 2016-08-16 15:11 | MRI ---
PROCEDURE: MRI BRAIN WITHOUT CONTRAST HISTORY: R/O MASS COMPARISON: Noncontrast head CT from 08/14/2016 TECHNIQUE: Multiplanar, multisequence MR images of the brain were obtained without intravenous contrast enhancement. Examination is of suboptimal diagnostic quality due to motion degraded images. FINDINGS: HEMORRHAGE: None DWI: No evidence of an acute or early subacute infarction. BRAIN PARENCHYMA: There are moderate chronic microangiopathic changes. There is no mass, mass effect or abnormal extra-axial fluid collection. The midline sagittal structures are normal. VENTRICLES: There is moderate age-related global parenchymal volume loss and proportionate enlargement of the ventricles and cortical sulci. CRANIUM: There is normal bone marrow signal pattern. ORBITS: Grossly unremarkable. PARANASAL SINUSES/MASTOIDS: Predominantly clear. VASCULAR SYSTEM: There are normal signal voids in the larger intracranial arteries. OTHER FINDINGS: None. IMPRESSION: Suboptimal diagnostic quality due to motion degraded images, allowing for no acute intracranial abnormality. Moderate chronic microangiopathic changes and moderate age-related global parenchymal volume loss.
--- NOTE | 2016-08-16 15:33 | VASCLAB ---
PROCEDURE: HISTORY: STENOSIS COMPARISON: None available. TECHNIQUE: Grayscale and duplex Doppler evaluation of the cervical carotid and vertebral arteries were performed. The common carotid, carotid bifurcations and cervical Internal Carotid Artery (ICA) and proximal External Carotid Artery (ECA) were evaluated. The vertebral arteries were evaluated for gross patency and flow direction. Report prepared by [place], BS, RVT FINDINGS: RIGHT CAROTID ARTERIES: 1. Common Carotid Artery: No significant focal plaque formation of the right common carotid artery. Maximum Peak Systolic velocity: 47 cm/sec: End-diastolic velocity 13 cm/sec. 2. Carotid Bifurcation: Calcific plaque formation. Maximum Peak Systolic velocity: 37 cm/sec: End-diastolic velocity 11 cm/sec. 3. Internal Carotid Artery: Moderate plaque formation of the right proximal ICA which does not results in hemodynamically significant stenosis. Plaque description: Calcific 3.1. Proximal Segment: Peak systolic velocity 76 cm/sec: End-diastolic velocity 26 cm/sec - % stenosis 0-15% 3.2. Middle Segment: Peak systolic velocity 31 cm/sec: End-diastolic velocity 10 cm/sec - % stenosis 0-15% 3.3. Distal Segment: Peak systolic velocity 67 cm/sec: End-diastolic velocity 20 cm/sec - % stenosis 0-15% 4. External Carotid Artery: No significant focal plaque formation. Peak systolic velocity 74 cm/sec 5. ICA/CCA Ratio: 1.6 LEFT CAROTID ARTERIES: 1. Common Carotid Artery: No significant focal plaque formation of the left common carotid artery. Maximum Peak Systolic velocity: 48 cm/sec: End-diastolic velocity 11 cm/sec. 2. Carotid Bifurcation: Calcific plaque formation. Maximum Peak Systolic velocity: 69 cm/sec: End-diastolic velocity 11 cm/sec. 3. Internal Carotid Artery: Severe plaque formation of the left proximal ICA which does not results in a hemodynamically significant stenosis. Plaque description: Calcific 3.1. Proximal Segment: Peak systolic velocity 63 cm/sec: End-diastolic velocity 14 cm/sec - % stenosis 0-15% 3.2. Middle Segment: Peak systolic velocity 58 cm/sec: End-diastolic velocity 19 cm/sec - % stenosis 0-15% 3.3. Distal Segment: Peak systolic velocity 39 cm/sec: End-diastolic velocity 15 cm/sec - % stenosis 0-15% 4. External Carotid Artery: No significant focal plaque formation. Peak systolic velocity 100 cm/sec 5. ICA/CCA Ratio: 1.5 VERTEBRAL ARTERIES: 1. Right Vertebral Artery: The right vertebral artery flow direction is antegrade. 2. Left Vertebral Artery: The left vertebral artery flow direction is antegrade. OTHER FINDINGS: 1. Right Brachial Blood pressure: mmHg. 2. Left Brachial Blood pressure: mmHg. IMPRESSION: RIGHT: Duplex scan does not suggest hemodynamically significant stenosis of the right extracranial carotid arteries. LEFT: Duplex scan does not suggest hemodynamically significant stenosis of the left extracranial carotid arteries.
--- NOTE | 2016-08-16 17:58 | CP.PCM.PN ---
Subjective - Date & Time of Evaluation Date of Evaluation: 08/16/16 Time of Evaluation: 17:30 - Subjective Subjective: pt clinically same cultures +Staph Aureus started on IV Vanco Dr Gallardo ID consult pending receiving iv lasix Dr Anand following Objective - Vital Signs/Intake and Output Vital Signs (last 24 hours): Temp Pulse Resp BP Pulse Ox 97.6 F 89 18 140/78 96 08/16/16 15:32 08/16/16 15:32 08/16/16 15:32 08/16/16 17:46 08/16/16 15:32 Intake and Output: 08/16/16 08/16/16 06:59 18:59 Intake Total 750 Balance 750 - Medications Medications: Current Medications Acetaminophen (Tylenol 325mg Tab) 650 mg PO Q4 PRN PRN Reason: Pain, Mild (1-3) Aspirin (Aspirin) 325 mg PO DAILY [facility] Last Admin: 08/16/16 09:30 Dose: 325 mg Bacitracin (Bacitracin) 0 gm TOP TID [facility] Last Admin: 08/16/16 17:47 Dose: 1 applic Enoxaparin Sodium (Lovenox) 30 mg SC DAILY [facility] Last Admin: 08/16/16 09:29 Dose: 30 mg Furosemide (Lasix) 40 mg IVP DAILY [facility] Last Admin: 08/16/16 09:30 Dose: 40 mg Home Med (Lisinopril [Qbrelis]) 30 ml PO BID [facility] Vancomycin HCl (Vancocin 750mg/D5w 150 Ml) 150 mls @ 100 mls/hr IVPB Q24H [facility] Stop: 08/21/16 10:01 Last Admin: 08/16/16 11:00 Dose: 100 mls/hr Lisinopril (Zestril) 10 mg PO DAILY [facility] Last Admin: 08/16/16 10:28 Dose: 10 mg Magnesium Hydroxide (Milk Of Magnesia) 30 ml PO DAILY [facility] Last Admin: 08/16/16 09:29 Dose: 30 ml Megestrol Acetate (Megace) 400 mg PO DAILY [facility] Last Admin: 08/16/16 09:29 Dose: 400 mg Metoprolol Tartrate (Lopressor) 25 mg PO BID [facility] Last Admin: 08/16/16 17:46 Dose: 25 mg Ondansetron HCl (Zofran Inj) 4 mg IVP Q6H PRN PRN Reason: Nausea/Vomiting Pantoprazole Sodium (Protonix Ec Tab) 40 mg PO DAILY [facility] Last Admin: 08/16/16 09:30 Dose: 40 mg Rosuvastatin Calcium (Crestor) 10 mg PO HS [facility] Last Admin: 08/14/16 22:34 Dose: 10 mg Silver Sulfadiazine (Silvadene 1% 20 Gm) 1 ea TOP BID [facility] Last Admin: 08/16/16 17:47 Dose: 1 applic - Labs Labs: 08/16/16 07:51 08/16/16 07:51 PT 11.3 SECONDS (9.7-12.2) 08/15/16 00:22 INR 1.0 08/15/16 00:22 APTT 36 SECONDS (21-34) H 08/15/16 00:22 - Constitutional Appears: No Acute Distress - Head Exam Head Exam: ATRAUMATIC, NORMAL INSPECTION, NORMOCEPHALIC - Eye Exam Eye Exam: EOMI, Normal appearance, PERRL Pupil Exam: NORMAL ACCOMODATION, PERRL - ENT Exam ENT Exam: Mucous Membranes Moist - Neck Exam Neck Exam: Full ROM - Respiratory Exam Respiratory Exam: Decreased Breath Sounds - Cardiovascular Exam Cardiovascular Exam: REGULAR RHYTHM, +S1, +S2 - GI/Abdominal Exam GI & Abdominal Exam: Soft, Diminished Bowel Sounds - Rectal Exam Rectal Exam: Deferred - Neurological Exam Neurological Exam: Alert, Awake, Oriented x3 Assessment and Plan (1) Acute diastolic (congestive) heart failure Status: Acute (2) Altered mental status Status: Acute (3) Bacteremia Status: Acute (4) CHF (congestive heart failure) Status: Acute (5) Dehydration Status: Acute (6) Fall Status: Acute (7) NSTEMI (non-ST elevation myocardial infarction) Status: Acute (8) Near syncope Status: Acute (9) Sepsis Status: Acute (10) Staph aureus infection Status: Acute (11) Syncope Status: Acute (12) Uncontrolled hypertension Status: Acute (13) Urinary tract infection Status: Acute (14) Dementia Status: Chronic - Assessment and Plan (Free Text) Plan: BCx +Staph Aureus iv vanco dr gallardo consult dr anand on board [place] iv lasix protonix lovenox f/u labs [place] mx as ordered
--- NOTE | 2016-08-16 18:08 | CP.PCM.CON ---
History of Present Illness - History of Present Illness History of Present Illness: 80 year old with dementia, HTN. admitted from rehab with progressive weakness, near syncope. now with elevated BNP and TNI being treated conservatively for NSTEMI but has positive blood c/s and started on IV Vanco Review of Systems - Review of Systems Systems not reviewed;Unavailable: Altered Mental Status - Constitutional Constitutional: As Per HPI - EENT Eyes: absent: As Per HPI, Blind Spots, Blurred Vision, Change in Vision, Decreased Night Vision, Diplopia, Discharge, Dry Eye, Exophthalmos, Floaters, Irritation, Itchy Eyes, Loss of Peripheral Vision, Pain, Photophobia, Requires Corrective Lenses, Sees Flashes, Spots in Vision, Tunnel Vision, Other Visual Disturbances, Loss of Vision, Other Ears: absent: As Per HPI, Decreased Hearing, Ear Discharge, Ear Pain, Tinnitus, Abnormal Hearing, Disequilibrium, Dizziness, Other Nose/Mouth/Throat: absent: As Per HPI, Epistaxis, Nasal Congestion, Nasal Discharge, Nasal Obstruction, Nasal Trauma, Nose Pain, Post Nasal Drip, Sinus Pain, Sinus Pressure, Bleeding Gums, Change in Voice, Dental Pain, Dry Mouth, Dysphagia, Halitosis, Hoarsness, Lip Swelling, Mouth Lesions, Mouth Pain, Odynophagia, Sore Throat, Throat Swelling, Tongue Swelling, Facial Pain, Neck Pain, Neck Mass, Other - Breasts Breasts: absent: As Per HPI, Change in Shape, Mass, Pain, Nipple Discharge, Nipple Inversion, Skin Changes, Swelling, Other - Cardiovascular Cardiovascular: As Per HPI - Respiratory Respiratory: absent: As Per HPI, Cough, Dyspnea, Hemoptysis, Dyspnea on Exertion , Wheezing, Snoring, Stridor, Pain on Inspiration, Chest Congestion, Excessive Mucous Production, Change in Mucous Color, Pain with Coughing, Other - Gastrointestinal Gastrointestinal: absent: As Per HPI, Abdominal Pain, Belching, Bloating, Change in Bowel Habits, Change in Stool Character, Coffee Ground Emesis, Constipation, Cramping, Diarrhea, Dyspepsia, Dysphagia, Early Satiety, Excessive Flatus, Fecal Incontinence, Heartburn, Hematemesis, Hematochezia, Loose Stools, Melena, Nausea, Odynophagia, Temesmus, Vomiting, Other - Genitourinary Genitourinary: absent: As Per HPI, Change in Urinary Stream, Difficulty Urinating, Dysuria, Flank Pain, Hematuria, Pyuria, Nocturia, Urinary Incontinence, Urinary Frequency, Urinary Hesitance, Urinary Urgency, Voiding Freq/Small Amts, Freq UTI, Hx Renal/Bladder Calculi, Hx /Renal Surgery, Bladder Distension, Other - Reproductive: Female Reproductive:Female: absent: As Per HPI, Amenorrhea, Amenorrhea/ Control, Currently Menstual, Cycle <21 Days, Cycle >35 Days, Cycle Variable, Menses 1-7 Days, Menses >/= 8 Days, Menses Variable, Cycle > 4 Weeks Between, No Menses for 6 Months, Heavy Menses, Light Menses, Normal Menses, Spotting Between Cycles , S/P Hysterectomy, Menopausal, Post Menopausal, Premenarche, Abnormal Vaginal Bleeding, Dysmenorrhea, Dyspareunia, Genital Lesions, Genital Pruritis, Pelvic Pain, Prolapse Symptoms, Sexual Dysfunction, Vaginal Discharge, Vaginal Dryness , Vaginal Odor, Vaginal Pruritis, Other - Menstruation Menstruation: absent: As Per HPI, Amenorrhea, Amenorrhea/ Control, Currently Menstual, Cycle <21 Days, Cycle >35 Days, Cycle Variable, Menses 1-7 Days, Menses >/= 8 Days, Menses Variable, Cycle > 4 Weeks Between, No Menses for 6 Months, Heavy Menses, Light Menses, Normal Menses, Spotting Between Cycles , S/P Hysterectomy, Menopausal, Post Menopausal, Premenarche, Abnormal Vaginal Bleeding, Dysmenorrhea, Other - Musculoskeletal Musculoskeletal: absent: As Per HPI, Abnormal Gait, Arthralgias, Atrophy, Back Pain, Deformity, Joint Swelling, Limited Range of Motion, Loss of Height, Muscle Cramps, Muscle Weakness, Myalgias, Neck Pain, Numbness, Radiating Pain into Limb, Stiffness, Tingling, Other - Integumentary Integumentary: absent: As Per HPI, Acne, Alopecia, Bleeding Lesions, Change in Hair, Change in Nails, Change in Pigmentation, Changing Lesions, Dry Skin, Erythema, Furuncle, Hirsutism, Lesions, New Lesions, Non-Healing Lesions, Photosensitivity, Pruritus, Rash, Skin Pain, Skin Ulcer, Sores, Striae, Swelling , Unusual Bruising, Wounds, Jaundice, Other - Neurological Neurological: As Per HPI - Psychiatric Psychiatric: As Per HPI - Endocrine Endocrine: absent: As Per HPI, Change in Body Appearance, Change in Libido, Cold Intolorance, Deepening of Voice, Excessive Sweating, Fatigue, Flushing, Heat Intolorance, Increase in Ring/Shoe/Hat Size, Palpitations, Polydipsia, Polyphagia, Polyuria, Other - Hematologic/Lymphatic Hematologic: absent: As Per HPI, Easy Bleeding, Easy Bruising, Lymphadenopathy, Other Past Patient History - Past Medical History & Family History Past Medical History?: No - Past Social History Smoking Status: Never Smoked - CARDIAC Hx Hypertension: Yes - PULMONARY Hx Respiratory Disorders: No - NEUROLOGICAL Hx Neurological Disorder: No - HEENT Hx HEENT Problems: No - RENAL Hx Chronic Kidney Disease: No - ENDOCRINE/METABOLIC Hx Endocrine Disorders: No - HEMATOLOGICAL/ONCOLOGICAL Hx Blood Disorders: No - INTEGUMENTARY Hx Dermatological Problems: No - MUSCULOSKELETAL/RHEUMATOLOGICAL Hx Musculoskeletal Disorders: No Hx Falls: Yes - GASTROINTESTINAL Hx Gastrointestinal Disorders: No - GENITOURINARY/GYNECOLOGICAL Hx Genitourinary Disorders: No - PSYCHIATRIC Hx Substance Use: No - SURGICAL HISTORY Hx Surgeries: No - ANESTHESIA Hx Anesthesia: No Hx Anesthesia Reactions: No Meds Allergies/Adverse Reactions: Allergies Allergy/AdvReac Type Severity Reaction Status Date / Time No Known Allergies Allergy Verified 06/15/16 16:08 - Medications Medications: Current Medications Acetaminophen (Tylenol 325mg Tab) 650 mg PO Q4 PRN PRN Reason: Pain, Mild (1-3) Aspirin (Aspirin) 325 mg PO DAILY [facility] Last Admin: 08/16/16 09:30 Dose: 325 mg Bacitracin (Bacitracin) 0 gm TOP TID [facility] Last Admin: 08/16/16 17:47 Dose: 1 applic Enoxaparin Sodium (Lovenox) 30 mg SC DAILY [facility] Last Admin: 08/16/16 09:29 Dose: 30 mg Furosemide (Lasix) 40 mg IVP DAILY [facility] Last Admin: 08/16/16 09:30 Dose: 40 mg Home Med (Lisinopril [Qbrelis]) 30 ml PO BID [facility] Vancomycin HCl (Vancocin 750mg/D5w 150 Ml) 150 mls @ 100 mls/hr IVPB Q24H [facility] Stop: 08/21/16 10:01 Last Admin: 08/16/16 11:00 Dose: 100 mls/hr Lisinopril (Zestril) 10 mg PO DAILY [facility] Last Admin: 08/16/16 10:28 Dose: 10 mg Magnesium Hydroxide (Milk Of Magnesia) 30 ml PO DAILY [facility] Last Admin: 08/16/16 09:29 Dose: 30 ml Megestrol Acetate (Megace) 400 mg PO DAILY [facility] Last Admin: 08/16/16 09:29 Dose: 400 mg Metoprolol Tartrate (Lopressor) 25 mg PO BID [facility] Last Admin: 08/16/16 17:46 Dose: 25 mg Ondansetron HCl (Zofran Inj) 4 mg IVP Q6H PRN PRN Reason: Nausea/Vomiting Pantoprazole Sodium (Protonix Ec Tab) 40 mg PO DAILY [facility] Last Admin: 08/16/16 09:30 Dose: 40 mg Rosuvastatin Calcium (Crestor) 10 mg PO HS [facility] Last Admin: 08/14/16 22:34 Dose: 10 mg Silver Sulfadiazine (Silvadene 1% 20 Gm) 1 ea TOP BID [facility] Last Admin: 08/16/16 17:47 Dose: 1 applic Physical Exam - Constitutional Appears: Non-toxic, Cachectic, Chronically Ill - Head Exam Head Exam: ATRAUMATIC, NORMAL INSPECTION, NORMOCEPHALIC - Eye Exam Eye Exam: PERRL. absent: Scleral icterus - ENT Exam ENT Exam: Mucous Membranes Dry, Normal External Ear Exam, Normal Oropharynx - Neck Exam Neck exam: Negative for: Lymphadenopathy - Respiratory Exam Respiratory Exam: Decreased Breath Sounds, Prolonged Expiratory Phase, Rhonchi - Cardiovascular Exam Cardiovascular Exam: REGULAR RHYTHM, +S1, +S2 - GI/Abdominal Exam GI & Abdominal Exam: Diminished Bowel Sounds, Distended, Soft. absent: Tenderness - Rectal Exam Rectal Exam: Deferred - Exam Exam: NORMAL INSPECTION - Extremities Exam Extremities exam: Positive for: pedal pulses present. Negative for: calf tenderness, pedal edema, tenderness - Back Exam Back exam: absent: CVA tenderness (L), CVA tenderness (R), paraspinal tenderness - Neurological Exam Neurological exam: Alert, CN II-XII Intact, Oriented x3, Reflexes Normal - Psychiatric Exam Psychiatric exam: Normal Mood Results - Vital Signs Recent Vital Signs: Last Vital Signs Temp 97.6 F 08/16/16 15:32 Pulse 89 08/16/16 15:32 Resp 18 08/16/16 15:32 BP 140/78 08/16/16 17:46 Pulse Ox 96 08/16/16 15:32 - Labs Result Diagrams: 08/16/16 07:51 08/16/16 07:51 Labs: Laboratory Results - last 24 hr 08/16/16 07:51 WBC 8.8 RBC 3.25 L Hgb 10.0 L Hct 30.6 L MCV 94.0 MCH 30.9 MCHC 32.9 L RDW 13.2 Plt Count 232 MPV 7.7 Neut % (Auto) 78.3 H Lymph % (Auto) 9.4 L [place] % (Auto) 7.6 Eos % (Auto) 4.3 H Baso % (Auto) 0.4 Neut # 6.9 Lymph # 0.8 L [place] # 0.7 Eos # 0.4 Baso # 0.0 Neutrophils % (Manual) 79 H Lymphocytes % (Manual) 8 L Monocytes % (Manual) 8 Eosinophils % (Manual) 5 H Platelet Estimate Normal Hypochromasia (manual) Slight Poikilocytosis (manual Slight Anisocytosis (manual) Slight Tear Drop Cells Slight [place] Cells Slight Sodium 141 Potassium 3.9 Chloride 103 Carbon Dioxide 26 Anion Gap 15 BUN 44 H Creatinine 1.0 Est GFR ( Amer) > 60 Est GFR (Non-Af Amer) 53 Random Glucose 94 Calcium 8.3 L Total Bilirubin 0.7 AST 14 ALT 19 Alkaline Phosphatase 61 Total Protein 5.3 L Albumin 2.9 L D Globulin 2.5 Albumin/Globulin Ratio 1.2 Assessment & Plan (1) CHF (congestive heart failure) Status: Acute (2) NSTEMI (non-ST elevation myocardial infarction) Status: Acute (3) Syncope Status: Acute (4) Altered mental status Status: Acute (5) Dehydration Status: Acute (6) Fall Status: Acute (7) Near syncope Status: Acute (8) Uncontrolled hypertension Status: Acute - Assessment and Plan (Free Text) Assessment: await id and sensitivity started vanco will follow may need repeat echo
--- NOTE | 2016-08-16 21:10 | CP.PCM.PN ---
Subjective - Date & Time of Evaluation Date of Evaluation: 08/16/16 Time of Evaluation: 14:00 - Subjective Subjective: no sob, blood culture + seen by ID on Vanco, no fever stop lasix, on lisinopril and B Jose, observe BP Objective - Vital Signs/Intake and Output Vital Signs (last 24 hours): Temp Pulse Resp BP Pulse Ox 97.6 F 89 18 140/78 96 08/16/16 15:32 08/16/16 15:32 08/16/16 15:32 08/16/16 17:46 08/16/16 15:32 Intake and Output: 08/16/16 08/17/16 18:59 06:59 Intake Total 750 Balance 750 - Medications Medications: Current Medications Acetaminophen (Tylenol 325mg Tab) 650 mg PO Q4 PRN PRN Reason: Pain, Mild (1-3) Aspirin (Aspirin) 325 mg PO DAILY [facility] Last Admin: 08/16/16 09:30 Dose: 325 mg Bacitracin (Bacitracin) 0 gm TOP TID [facility] Last Admin: 08/16/16 17:47 Dose: 1 applic Enoxaparin Sodium (Lovenox) 30 mg SC DAILY [facility] Last Admin: 08/16/16 09:29 Dose: 30 mg Furosemide (Lasix) 40 mg IVP DAILY [facility] Last Admin: 08/16/16 09:30 Dose: 40 mg Home Med (Lisinopril [Qbrelis]) 30 ml PO BID [facility] Vancomycin HCl (Vancocin 750mg/D5w 150 Ml) 150 mls @ 100 mls/hr IVPB Q24H [facility] Stop: 08/21/16 10:01 Last Admin: 08/16/16 11:00 Dose: 100 mls/hr Lisinopril (Zestril) 10 mg PO DAILY [facility] Last Admin: 08/16/16 10:28 Dose: 10 mg Magnesium Hydroxide (Milk Of Magnesia) 30 ml PO DAILY [facility] Last Admin: 08/16/16 09:29 Dose: 30 ml Megestrol Acetate (Megace) 400 mg PO DAILY [facility] Last Admin: 08/16/16 09:29 Dose: 400 mg Metoprolol Tartrate (Lopressor) 25 mg PO BID [facility] Last Admin: 08/16/16 17:46 Dose: 25 mg Ondansetron HCl (Zofran Inj) 4 mg IVP Q6H PRN PRN Reason: Nausea/Vomiting Pantoprazole Sodium (Protonix Ec Tab) 40 mg PO DAILY [facility] Last Admin: 08/16/16 09:30 Dose: 40 mg Rosuvastatin Calcium (Crestor) 10 mg PO HS [facility] Last Admin: 08/14/16 22:34 Dose: 10 mg Silver Sulfadiazine (Silvadene 1% 20 Gm) 1 ea TOP BID [facility] Last Admin: 08/16/16 17:47 Dose: 1 applic - Labs Labs: 08/16/16 07:51 08/16/16 07:51 PT 11.3 SECONDS (9.7-12.2) 08/15/16 00:22 INR 1.0 08/15/16 00:22 APTT 36 SECONDS (21-34) H 08/15/16 00:22 - Constitutional Appears: Non-toxic - Head Exam Head Exam: ATRAUMATIC - Eye Exam Eye Exam: EOMI - ENT Exam ENT Exam: Mucous Membranes Moist - Neck Exam Neck Exam: absent: Lymphadenopathy, Thyromegaly - Respiratory Exam Respiratory Exam: Clear to Ausculation Bilateral. absent: Prolonged Expiratory Phase, Rales - Cardiovascular Exam Cardiovascular Exam: REGULAR RHYTHM, Murmur - GI/Abdominal Exam GI & Abdominal Exam: Normal Bowel Sounds. absent: Organomegaly - Rectal Exam Rectal Exam: Deferred - Extremities Exam Extremities Exam: Normal Capillary Refill. absent: Calf Tenderness - Neurological Exam Neurological Exam: Alert, Oriented x3 - Psychiatric Exam Psychiatric exam: Normal Mood - Skin Skin Exam: Dry Assessment and Plan (1) CHF (congestive heart failure) Status: Acute (2) NSTEMI (non-ST elevation myocardial infarction) Status: Acute (3) Dementia Status: Chronic (4) Sepsis Assessment & Plan: + BC observe with ID Status: Acute
[2016-08-17] MEDS: Magnesium Hydroxide Susp 30 ml UD PO SCH (09:10)
[2016-08-17] MEDS: Enoxaparin 30 mg Syringe SC SCH (09:10)
[2016-08-17] MEDS: Megestrol Acetate 40 mg/ml Cup PO SCH (09:11)
[2016-08-17] MEDS: Pantoprazole 40 mg EC Tab PO SCH (09:11)
[2016-08-17] MEDS: Vancomycin 750mg/D5W 150 ml 150 ML IVPB SCH (09:12)
[2016-08-17] MEDS: Silver Sulfadiazine 1% Cream (20 gm) TOP SCH ×2 (09:26→18:21)
[2016-08-17] MEDS: Bacitracin Ointment 30 GM TUBE TOP SCH ×3 (09:26→18:21)
--- NOTE | 2016-08-17 10:37 | CP.PCM.PN ---
Subjective - Date & Time of Evaluation Date of Evaluation: 08/17/16 Time of Evaluation: 11:40 - Subjective Subjective: clinically same s/p Dr Gallardo ongoing iv [facility] Dr Ruffin following Objective - Vital Signs/Intake and Output Vital Signs (last 24 hours): Temp Pulse Resp BP Pulse Ox 97.4 F L 87 20 104/68 95 08/17/16 08:11 08/17/16 08:11 08/17/16 08:11 08/17/16 09:14 08/17/16 08:11 Intake and Output: 08/17/16 08/17/16 06:59 18:59 Intake Total 150 Output Total 1300 Balance -1150 - Medications Medications: Current Medications Acetaminophen (Tylenol 325mg Tab) 650 mg PO Q4 PRN PRN Reason: Pain, Mild (1-3) Aspirin (Aspirin) 325 mg PO DAILY [facility] Last Admin: 08/17/16 09:11 Dose: 325 mg Bacitracin (Bacitracin) 0 gm TOP TID [facility] Last Admin: 08/17/16 09:26 Dose: 1 applic Enoxaparin Sodium (Lovenox) 30 mg SC DAILY [facility] Last Admin: 08/17/16 09:10 Dose: 30 mg Home Med (Lisinopril [Qbrelis]) 30 ml PO BID [facility] Vancomycin HCl (Vancocin 750mg/D5w 150 Ml) 150 mls @ 100 mls/hr IVPB Q24H [facility] Stop: 08/21/16 10:01 Last Admin: 08/17/16 09:12 Dose: 100 mls/hr Lisinopril (Zestril) 10 mg PO DAILY [facility] Last Admin: 08/17/16 09:13 Dose: 10 mg Magnesium Hydroxide (Milk Of Magnesia) 30 ml PO DAILY [facility] Last Admin: 08/17/16 09:10 Dose: 30 ml Megestrol Acetate (Megace) 400 mg PO DAILY [facility] Last Admin: 08/17/16 09:11 Dose: 400 mg Metoprolol Tartrate (Lopressor) 25 mg PO BID [facility] Last Admin: 08/17/16 09:14 Dose: 25 mg Ondansetron HCl (Zofran Inj) 4 mg IVP Q6H PRN PRN Reason: Nausea/Vomiting Last Admin: 08/17/16 09:18 Dose: 4 mg Pantoprazole Sodium (Protonix Ec Tab) 40 mg PO DAILY [facility] Last Admin: 08/17/16 09:11 Dose: 40 mg Rosuvastatin Calcium (Crestor) 10 mg PO HS [facility] Last Admin: 08/16/16 21:27 Dose: 10 mg Silver Sulfadiazine (Silvadene 1% 20 Gm) 1 ea TOP BID [facility] Last Admin: 08/17/16 09:26 Dose: 1 applic - Labs Labs: 08/16/16 07:51 08/16/16 07:51 PT 11.3 SECONDS (9.7-12.2) 08/15/16 00:22 INR 1.0 08/15/16 00:22 APTT 36 SECONDS (21-34) H 08/15/16 00:22 - Constitutional Appears: Well - Head Exam Head Exam: ATRAUMATIC, NORMAL INSPECTION, NORMOCEPHALIC - Eye Exam Eye Exam: EOMI, Normal appearance, PERRL Pupil Exam: NORMAL ACCOMODATION, PERRL - ENT Exam ENT Exam: Mucous Membranes Moist, Normal Exam - Neck Exam Neck Exam: Full ROM, Normal Inspection. absent: Lymphadenopathy - Respiratory Exam Respiratory Exam: Decreased Breath Sounds - Cardiovascular Exam Cardiovascular Exam: REGULAR RHYTHM, +S1, +S2 - GI/Abdominal Exam GI & Abdominal Exam: Soft, Diminished Bowel Sounds - Rectal Exam Rectal Exam: Deferred - Neurological Exam Neurological Exam: Alert, Awake, Oriented x3 Assessment and Plan (1) Altered mental status Status: Acute (2) Dehydration Status: Acute (3) Urinary tract infection Status: Acute (4) Uncontrolled hypertension Status: Acute (5) Dementia Status: Chronic (6) Syncope Status: Acute (7) CHF (congestive heart failure) Status: Acute (8) NSTEMI (non-ST elevation myocardial infarction) Status: Acute (9) Sepsis Status: Acute (10) Acute diastolic (congestive) heart failure Status: Acute - Assessment and Plan (Free Text) Plan: pt is eating off lasix follow up with dr cheng perry iv abx dr gallardo id on board mx as ordered
--- NOTE | 2016-08-17 13:55 | CP.PCM.PN ---
<Syed Robledo H - Last Filed: 08/17/16 14:09> Subjective - Date & Time of Evaluation Date of Evaluation: 08/17/16 Time of Evaluation: 09:30 - Subjective Subjective: Dr. Green service: Patient seen in room. She is only oriented to person when I spoke to her but no complaints of pain. She has poor PO intake according to the nurse. Objective - Vital Signs/Intake and Output Vital Signs (last 24 hours): Temp Pulse Resp BP Pulse Ox 97.4 F L 87 20 104/68 95 08/17/16 08:11 08/17/16 08:11 08/17/16 08:11 08/17/16 09:14 08/17/16 08:11 Intake and Output: 08/17/16 08/17/16 06:59 18:59 Intake Total 150 Output Total 1300 Balance -1150 - Medications Medications: Current Medications Acetaminophen (Tylenol 325mg Tab) 650 mg PO Q4 PRN PRN Reason: Pain, Mild (1-3) Aspirin (Aspirin) 325 mg PO DAILY [facility] Last Admin: 08/17/16 09:11 Dose: 325 mg Bacitracin (Bacitracin) 0 gm TOP TID [facility] Last Admin: 08/17/16 09:26 Dose: 1 applic Enoxaparin Sodium (Lovenox) 30 mg SC DAILY [facility] Last Admin: 08/17/16 09:10 Dose: 30 mg Vancomycin HCl (Vancocin 750mg/D5w 150 Ml) 150 mls @ 100 mls/hr IVPB Q24H [facility] Stop: 08/21/16 10:01 Last Admin: 08/17/16 09:12 Dose: 100 mls/hr Lisinopril (Zestril) 10 mg PO DAILY [facility] Last Admin: 08/17/16 09:13 Dose: 10 mg Magnesium Hydroxide (Milk Of Magnesia) 30 ml PO DAILY [facility] Last Admin: 08/17/16 09:10 Dose: 30 ml Megestrol Acetate (Megace) 400 mg PO DAILY [facility] Last Admin: 08/17/16 09:11 Dose: 400 mg Metoprolol Tartrate (Lopressor) 25 mg PO BID [facility] Last Admin: 08/17/16 09:14 Dose: 25 mg Ondansetron HCl (Zofran Inj) 4 mg IVP Q6H PRN PRN Reason: Nausea/Vomiting Last Admin: 08/17/16 09:18 Dose: 4 mg Pantoprazole Sodium (Protonix Ec Tab) 40 mg PO DAILY [facility] Last Admin: 08/17/16 09:11 Dose: 40 mg Rosuvastatin Calcium (Crestor) 10 mg PO HS [facility] Last Admin: 08/16/16 21:27 Dose: 10 mg Silver Sulfadiazine (Silvadene 1% 20 Gm) 1 ea TOP BID [facility] Last Admin: 08/17/16 09:26 Dose: 1 applic - Labs Labs: 08/16/16 07:51 08/16/16 07:51 PT 11.3 SECONDS (9.7-12.2) 08/15/16 00:22 INR 1.0 08/15/16 00:22 APTT 36 SECONDS (21-34) H 08/15/16 00:22 - Constitutional Appears: Chronically Ill - Head Exam Head Exam: NORMAL INSPECTION - Eye Exam Eye Exam: Normal appearance, PERRL Pupil Exam: NORMAL ACCOMODATION - ENT Exam ENT Exam: Normal Exam - Respiratory Exam Respiratory Exam: Clear to Ausculation Bilateral. absent: Rhonchi, Wheezes - Cardiovascular Exam Cardiovascular Exam: REGULAR RHYTHM, RRR, +S1, +S2. absent: Gallop, Rubs - GI/Abdominal Exam GI & Abdominal Exam: Soft, Normal Bowel Sounds. absent: Tenderness - Extremities Exam Extremities Exam: Normal Inspection. absent: Pedal Edema Assessment and Plan - Assessment and Plan (Free Text) Assessment: Assessment: 08/17: Ordered for a swallow eval and also ordered pallative care consult. Patient may need TPN till a PEG tube or hospice decision is made. Previous note Patient has gram positive in blood, have ordered Vancomycin 750mg Q24 IV due to low body weight. Dr. Erwin consulted. Follow up sensitivity. (1) NSTEMI 08/16: Continue managment, Aspirin 325mg, Crestor 10mg, and Aspirin 325mg. Previous note LUDY 0.367--> 0.385--> 0.[address] Ruffin consulted- per recommendations treat medically for NSTEMI , non aggressive with poor over prognosis ASA 325mg PO daily Metoprolol tartrate 25mg PO BID Crestor 10mg PO HS (2) CHF 06/15/16 ECHO LV EF 57%, diastolic dysfunction, hypertensive heart disease BNP 4570 Lasix 40mg IV daily (3) HTN Metoprolol tartrate 25mg PO BID Lasix 40mg IV daily Monitor (4) Dementia-Failure to thrive 08/17: Swallow study and Pallative care consult Xu for appetite stimulant. Per Dr. Green, a consult for Dr. Eason was put in. However patient will need to be more stable medically before they can according to the GI Fellow Dr. Morrow (5) Prophylactic measures SCDs Lovenox 30mg SC daily Protonix 40mg PO daily All management and orders per Dr Oneida green. Discussed with attending. <Azeb Green S - Last Filed: 08/17/16 19:02> Objective - Vital Signs/Intake and Output Vital Signs (last 24 hours): Temp Pulse Resp BP Pulse Ox 98.2 F 93 H 20 157/87 H 94 L 08/17/16 15:24 08/17/16 15:24 08/17/16 15:24 08/17/16 17:42 08/17/16 15:24 Intake and Output: 08/17/16 08/18/16 18:59 06:59 Intake Total 150 Output Total 2900 Balance -2750 - Medications Medications: Current Medications Acetaminophen (Tylenol 325mg Tab) 650 mg PO Q4 PRN PRN Reason: Pain, Mild (1-3) Aspirin (Aspirin) 325 mg PO DAILY [facility] Last Admin: 08/17/16 09:11 Dose: 325 mg Bacitracin (Bacitracin) 0 gm TOP TID [facility] Last Admin: 08/17/16 18:21 Dose: 1 applic Enoxaparin Sodium (Lovenox) 30 mg SC DAILY [facility] Last Admin: 08/17/16 09:10 Dose: 30 mg Vancomycin HCl (Vancocin 750mg/D5w 150 Ml) 150 mls @ 100 mls/hr IVPB Q24H [facility] Stop: 08/21/16 10:01 Last Admin: 08/17/16 09:12 Dose: 100 mls/hr Lisinopril (Zestril) 10 mg PO DAILY [facility] Last Admin: 08/17/16 09:13 Dose: 10 mg Magnesium Hydroxide (Milk Of Magnesia) 30 ml PO DAILY [facility] Last Admin: 08/17/16 09:10 Dose: 30 ml Megestrol Acetate (Megace) 400 mg PO DAILY [facility] Last Admin: 08/17/16 09:11 Dose: 400 mg Metoprolol Tartrate (Lopressor) 25 mg PO BID [facility] Last Admin: 08/17/16 17:42 Dose: 25 mg Ondansetron HCl (Zofran Inj) 4 mg IVP Q6H PRN PRN Reason: Nausea/Vomiting Last Admin: 08/17/16 14:36 Dose: 4 mg Pantoprazole Sodium (Protonix Ec Tab) 40 mg PO DAILY [facility] Last Admin: 08/17/16 09:11 Dose: 40 mg Rosuvastatin Calcium (Crestor) 10 mg PO HS [facility] Last Admin: 08/16/16 21:27 Dose: 10 mg Silver Sulfadiazine (Silvadene 1% 20 Gm) 1 ea TOP BID [facility] Last Admin: 08/17/16 18:21 Dose: 1 applic - Labs Labs: 08/16/16 07:51 08/16/16 07:51 PT 11.3 SECONDS (9.7-12.2) 08/15/16 00:22 INR 1.0 08/15/16 00:22 APTT 36 SECONDS (21-34) H 08/15/16 00:22 Attending/Attestation - Attestation I have personally seen and examined this patient.: Yes I have fully participated in the care of the patient.: Yes I have reviewed all pertinent clinical information, including history, physical exam and plan: Yes Notes (Text): 08/17/16 19:01 case seen and discussed with resident and staff mx as ordered
--- NOTE | 2016-08-17 17:00 | CP.PCM.PN ---
Subjective - Date & Time of Evaluation Date of Evaluation: 08/17/16 Time of Evaluation: 12:00 - Subjective Subjective: no sob, weak, debility, BP 110 syst. no syncope, on treatment for sepsis, off lasix Objective - Vital Signs/Intake and Output Vital Signs (last 24 hours): Temp Pulse Resp BP Pulse Ox 98.2 F 93 H 20 157/87 H 94 L 08/17/16 15:24 08/17/16 15:24 08/17/16 15:24 08/17/16 15:24 08/17/16 15:24 Intake and Output: 08/17/16 08/17/16 06:59 18:59 Intake Total 150 Output Total 2900 Balance -2750 - Medications Medications: Current Medications Acetaminophen (Tylenol 325mg Tab) 650 mg PO Q4 PRN PRN Reason: Pain, Mild (1-3) Aspirin (Aspirin) 325 mg PO DAILY [facility] Last Admin: 08/17/16 09:11 Dose: 325 mg Bacitracin (Bacitracin) 0 gm TOP TID [facility] Last Admin: 08/17/16 14:39 Dose: 1 applic Enoxaparin Sodium (Lovenox) 30 mg SC DAILY [facility] Last Admin: 08/17/16 09:10 Dose: 30 mg Vancomycin HCl (Vancocin 750mg/D5w 150 Ml) 150 mls @ 100 mls/hr IVPB Q24H [facility] Stop: 08/21/16 10:01 Last Admin: 08/17/16 09:12 Dose: 100 mls/hr Lisinopril (Zestril) 10 mg PO DAILY [facility] Last Admin: 08/17/16 09:13 Dose: 10 mg Magnesium Hydroxide (Milk Of Magnesia) 30 ml PO DAILY [facility] Last Admin: 08/17/16 09:10 Dose: 30 ml Megestrol Acetate (Megace) 400 mg PO DAILY [facility] Last Admin: 08/17/16 09:11 Dose: 400 mg Metoprolol Tartrate (Lopressor) 25 mg PO BID [facility] Last Admin: 08/17/16 09:14 Dose: 25 mg Ondansetron HCl (Zofran Inj) 4 mg IVP Q6H PRN PRN Reason: Nausea/Vomiting Last Admin: 08/17/16 14:36 Dose: 4 mg Pantoprazole Sodium (Protonix Ec Tab) 40 mg PO DAILY [facility] Last Admin: 08/17/16 09:11 Dose: 40 mg Rosuvastatin Calcium (Crestor) 10 mg PO HS [facility] Last Admin: 08/16/16 21:27 Dose: 10 mg Silver Sulfadiazine (Silvadene 1% 20 Gm) 1 ea TOP BID [facility] Last Admin: 08/17/16 09:26 Dose: 1 applic - Labs Labs: 08/16/16 07:51 08/16/16 07:51 PT 11.3 SECONDS (9.7-12.2) 08/15/16 00:22 INR 1.0 08/15/16 00:22 APTT 36 SECONDS (21-34) H 08/15/16 00:22 - Constitutional Appears: Non-toxic - Head Exam Head Exam: ATRAUMATIC - Eye Exam Eye Exam: EOMI - ENT Exam ENT Exam: Mucous Membranes Moist - Neck Exam Neck Exam: absent: Lymphadenopathy, Thyromegaly - Respiratory Exam Respiratory Exam: Clear to Ausculation Bilateral. absent: Rales - Cardiovascular Exam Cardiovascular Exam: REGULAR RHYTHM, Murmur - GI/Abdominal Exam GI & Abdominal Exam: Normal Bowel Sounds. absent: Organomegaly - Rectal Exam Rectal Exam: Deferred - Extremities Exam Extremities Exam: Normal Capillary Refill. absent: Calf Tenderness - Neurological Exam Neurological Exam: Alert, Oriented x3 - Psychiatric Exam Psychiatric exam: Normal Mood - Skin Skin Exam: Dry Assessment and Plan (1) CHF (congestive heart failure) Status: Acute (2) NSTEMI (non-ST elevation myocardial infarction) Status: Acute (3) Dementia Status: Chronic (4) Sepsis Status: Acute
--- NOTE | 2016-08-17 18:05 | CP.PCM.PN ---
Subjective - Date & Time of Evaluation Date of Evaluation: 08/17/16 Time of Evaluation: 08:00 - Subjective Subjective: 80 year old with dementia, HTN. admitted from rehab with progressive weakness, near syncope. now with elevated BNP and TNI being treated conservatively for NSTEMI but has positive blood c/s and started on IV Vanco Objective - Vital Signs/Intake and Output Vital Signs (last 24 hours): Temp Pulse Resp BP Pulse Ox 98.2 F 93 H 20 157/87 H 94 L 08/17/16 15:24 08/17/16 15:24 08/17/16 15:24 08/17/16 17:42 08/17/16 15:24 Intake and Output: 08/17/16 08/17/16 06:59 18:59 Intake Total 150 Output Total 2900 Balance -2750 - Medications Medications: Current Medications Acetaminophen (Tylenol 325mg Tab) 650 mg PO Q4 PRN PRN Reason: Pain, Mild (1-3) Aspirin (Aspirin) 325 mg PO DAILY [facility] Last Admin: 08/17/16 09:11 Dose: 325 mg Bacitracin (Bacitracin) 0 gm TOP TID [facility] Last Admin: 08/17/16 14:39 Dose: 1 applic Enoxaparin Sodium (Lovenox) 30 mg SC DAILY [facility] Last Admin: 08/17/16 09:10 Dose: 30 mg Vancomycin HCl (Vancocin 750mg/D5w 150 Ml) 150 mls @ 100 mls/hr IVPB Q24H [facility] Stop: 08/21/16 10:01 Last Admin: 08/17/16 09:12 Dose: 100 mls/hr Lisinopril (Zestril) 10 mg PO DAILY [facility] Last Admin: 08/17/16 09:13 Dose: 10 mg Magnesium Hydroxide (Milk Of Magnesia) 30 ml PO DAILY [facility] Last Admin: 08/17/16 09:10 Dose: 30 ml Megestrol Acetate (Megace) 400 mg PO DAILY [facility] Last Admin: 08/17/16 09:11 Dose: 400 mg Metoprolol Tartrate (Lopressor) 25 mg PO BID [facility] Last Admin: 08/17/16 17:42 Dose: 25 mg Ondansetron HCl (Zofran Inj) 4 mg IVP Q6H PRN PRN Reason: Nausea/Vomiting Last Admin: 08/17/16 14:36 Dose: 4 mg Pantoprazole Sodium (Protonix Ec Tab) 40 mg PO DAILY [facility] Last Admin: 08/17/16 09:11 Dose: 40 mg Rosuvastatin Calcium (Crestor) 10 mg PO HS [facility] Last Admin: 08/16/16 21:27 Dose: 10 mg Silver Sulfadiazine (Silvadene 1% 20 Gm) 1 ea TOP BID [facility] Last Admin: 08/17/16 09:26 Dose: 1 applic - Labs Labs: 08/16/16 07:51 08/16/16 07:51 PT 11.3 SECONDS (9.7-12.2) 08/15/16 00:22 INR 1.0 08/15/16 00:22 APTT 36 SECONDS (21-34) H 08/15/16 00:22 - Constitutional Appears: Non-toxic, Cachectic, Chronically Ill - Head Exam Head Exam: NORMOCEPHALIC - Eye Exam Eye Exam: PERRL. absent: Scleral icterus - ENT Exam ENT Exam: Mucous Membranes Dry - Neck Exam Neck Exam: absent: Lymphadenopathy - Respiratory Exam Respiratory Exam: Decreased Breath Sounds, Rhonchi - Cardiovascular Exam Cardiovascular Exam: REGULAR RHYTHM, +S1, +S2 - GI/Abdominal Exam GI & Abdominal Exam: Distended, Soft - Rectal Exam Rectal Exam: Deferred - Exam Exam: NORMAL INSPECTION Assessment and Plan (1) CHF (congestive heart failure) Status: Acute (2) NSTEMI (non-ST elevation myocardial infarction) Status: Acute (3) Syncope Status: Acute (4) Altered mental status Status: Acute (5) Dehydration Status: Acute (6) Fall Status: Acute (7) Near syncope Status: Acute (8) Uncontrolled hypertension Status: Acute
[2016-08-18] MEDS: Megestrol Acetate 40 mg/ml Cup PO SCH (09:13)
[2016-08-18] MEDS: Enoxaparin 30 mg Syringe SC SCH (09:13)
[2016-08-18] MEDS: Magnesium Hydroxide Susp 30 ml UD PO SCH (09:13)
[2016-08-18] MEDS: Pantoprazole 40 mg EC Tab PO SCH (09:14)
[2016-08-18] MEDS: Bacitracin Ointment 30 GM TUBE TOP SCH ×3 (09:19→18:56)
[2016-08-18] MEDS: Silver Sulfadiazine 1% Cream (20 gm) TOP SCH ×2 (09:19→18:56)
[2016-08-18] MEDS: Vancomycin 750mg/D5W 150 ml 150 ML IVPB SCH (09:20)
--- NOTE | 2016-08-18 13:06 | CP.PCM.PN ---
Subjective - Date & Time of Evaluation Date of Evaluation: 08/18/16 Time of Evaluation: 13:01 - Subjective Subjective: 80 year old female with dementia who was admitted with sepsis, pt has positive blood culture. Pt was straight cathed and found to have 1600 cc pvr. A urinary retention unknown etiology. Suggest Insert rouse, get c& s leave rouse untill maximally improved and give voiding trial. Pt should also have us of kidneys to ro hydro. Margarita Objective - Vital Signs/Intake and Output Vital Signs (last 24 hours): Temp Pulse Resp BP Pulse Ox 98.2 F 91 H 17 160/92 H 95 08/18/16 07:10 08/18/16 07:10 08/18/16 07:10 08/18/16 09:14 08/18/16 07:10 Intake and Output: 08/18/16 08/18/16 06:59 18:59 Intake Total 420 Output Total 900 Balance -480 - Medications Medications: Current Medications Acetaminophen (Tylenol 325mg Tab) 650 mg PO Q4 PRN PRN Reason: Pain, Mild (1-3) Aspirin (Aspirin) 325 mg PO DAILY [facility] Last Admin: 08/18/16 09:14 Dose: 325 mg Bacitracin (Bacitracin) 0 gm TOP TID [facility] Last Admin: 08/18/16 09:19 Dose: 1 applic Enoxaparin Sodium (Lovenox) 30 mg SC DAILY [facility] Last Admin: 08/18/16 09:13 Dose: 30 mg Vancomycin HCl (Vancocin 750mg/D5w 150 Ml) 150 mls @ 100 mls/hr IVPB Q24H [facility] Stop: 08/21/16 10:01 Last Admin: 08/18/16 09:20 Dose: 100 mls/hr Lisinopril (Zestril) 10 mg PO DAILY [facility] Last Admin: 08/18/16 09:14 Dose: 10 mg Magnesium Hydroxide (Milk Of Magnesia) 30 ml PO DAILY [facility] Last Admin: 08/18/16 09:13 Dose: 30 ml Megestrol Acetate (Megace) 400 mg PO DAILY [facility] Last Admin: 08/18/16 09:13 Dose: 400 mg Metoprolol Tartrate (Lopressor) 25 mg PO BID [facility] Last Admin: 08/18/16 09:14 Dose: 25 mg Ondansetron HCl (Zofran Inj) 4 mg IVP Q6H PRN PRN Reason: Nausea/Vomiting Last Admin: 08/18/16 09:18 Dose: 4 mg Pantoprazole Sodium (Protonix Ec Tab) 40 mg PO DAILY [facility] Last Admin: 08/18/16 09:14 Dose: 40 mg Rosuvastatin Calcium (Crestor) 10 mg PO HS [facility] Last Admin: 08/17/16 22:24 Dose: 10 mg Silver Sulfadiazine (Silvadene 1% 20 Gm) 1 ea TOP BID [facility] Last Admin: 08/18/16 09:19 Dose: 1 applic - Labs Labs: 08/16/16 07:51 08/16/16 07:51 PT 11.3 SECONDS (9.7-12.2) 08/15/16 00:22 INR 1.0 08/15/16 00:22 APTT 36 SECONDS (21-34) H 08/15/16 00:22
--- NOTE | 2016-08-18 14:58 | CP.PCM.PN ---
Subjective - Date & Time of Evaluation Date of Evaluation: 08/18/16 Time of Evaluation: 01:40 - Subjective Subjective: clinically same s/p dr pereyra x urinary retention dr anand and dr gallardo following ongoing iv abx Objective - Vital Signs/Intake and Output Vital Signs (last 24 hours): Temp Pulse Resp BP Pulse Ox 98.2 F 81 17 160/92 H 95 08/18/16 07:10 08/18/16 08:00 08/18/16 07:10 08/18/16 09:14 08/18/16 07:10 Intake and Output: 08/18/16 08/18/16 06:59 18:59 Intake Total 420 Output Total 900 Balance -480 - Medications Medications: Current Medications Acetaminophen (Tylenol 325mg Tab) 650 mg PO Q4 PRN PRN Reason: Pain, Mild (1-3) Aspirin (Aspirin) 325 mg PO DAILY [facility] Last Admin: 08/18/16 09:14 Dose: 325 mg Bacitracin (Bacitracin) 0 gm TOP TID [facility] Last Admin: 08/18/16 09:19 Dose: 1 applic Enoxaparin Sodium (Lovenox) 30 mg SC DAILY [facility] Last Admin: 08/18/16 09:13 Dose: 30 mg Vancomycin HCl (Vancocin 750mg/D5w 150 Ml) 150 mls @ 100 mls/hr IVPB Q24H [facility] Stop: 08/21/16 10:01 Last Admin: 08/18/16 09:20 Dose: 100 mls/hr Lisinopril (Zestril) 10 mg PO DAILY [facility] Last Admin: 08/18/16 09:14 Dose: 10 mg Magnesium Hydroxide (Milk Of Magnesia) 30 ml PO DAILY [facility] Last Admin: 08/18/16 09:13 Dose: 30 ml Megestrol Acetate (Megace) 400 mg PO DAILY [facility] Last Admin: 08/18/16 09:13 Dose: 400 mg Metoprolol Tartrate (Lopressor) 25 mg PO BID [facility] Last Admin: 08/18/16 09:14 Dose: 25 mg Ondansetron HCl (Zofran Inj) 4 mg IVP Q6H PRN PRN Reason: Nausea/Vomiting Last Admin: 08/18/16 09:18 Dose: 4 mg Pantoprazole Sodium (Protonix Ec Tab) 40 mg PO DAILY [facility] Last Admin: 08/18/16 09:14 Dose: 40 mg Rosuvastatin Calcium (Crestor) 10 mg PO HS [facility] Last Admin: 08/17/16 22:24 Dose: 10 mg Silver Sulfadiazine (Silvadene 1% 20 Gm) 1 ea TOP BID [facility] Last Admin: 08/18/16 09:19 Dose: 1 applic - Labs Labs: 08/16/16 07:51 08/16/16 07:51 PT 11.3 SECONDS (9.7-12.2) 08/15/16 00:22 INR 1.0 08/15/16 00:22 APTT 36 SECONDS (21-34) H 08/15/16 00:22 - Constitutional Appears: Well - Head Exam Head Exam: ATRAUMATIC, NORMAL INSPECTION, NORMOCEPHALIC - Eye Exam Eye Exam: EOMI, Normal appearance, PERRL Pupil Exam: NORMAL ACCOMODATION, PERRL - ENT Exam ENT Exam: Mucous Membranes Moist, Normal Exam - Neck Exam Neck Exam: Full ROM, Normal Inspection. absent: Lymphadenopathy - Respiratory Exam Respiratory Exam: Decreased Breath Sounds - Cardiovascular Exam Cardiovascular Exam: REGULAR RHYTHM, +S1, +S2 - GI/Abdominal Exam GI & Abdominal Exam: Soft, Diminished Bowel Sounds - Rectal Exam Rectal Exam: Deferred - Neurological Exam Neurological Exam: Alert, Awake Assessment and Plan (1) Altered mental status Status: Acute (2) Dehydration Status: Acute (3) Urinary tract infection Status: Acute (4) Uncontrolled hypertension Status: Acute (5) Dementia Status: Chronic (6) Syncope Status: Acute (7) CHF (congestive heart failure) Status: Acute (8) NSTEMI (non-ST elevation myocardial infarction) Status: Acute (9) Sepsis Status: Acute (10) Acute diastolic (congestive) heart failure Status: Acute - Assessment and Plan (Free Text) Plan: dr pereyra on board rouse in place iv abx as per id [place] same mx as ordered f/u with dr anand f/u labs monitor for fever
--- NOTE | 2016-08-18 16:09 | CP.PCM.PN ---
Subjective - Date & Time of Evaluation Date of Evaluation: 08/18/16 Time of Evaluation: 14:00 - Subjective Subjective: With urinary retention, Patel in place observe, treatment for sepsis. Off Lasix Objective - Vital Signs/Intake and Output Vital Signs (last 24 hours): Temp Pulse Resp BP Pulse Ox 98.2 F 81 17 160/92 H 95 08/18/16 07:10 08/18/16 08:00 08/18/16 07:10 08/18/16 09:14 08/18/16 07:10 Intake and Output: 08/18/16 08/18/16 06:59 18:59 Intake Total 420 Output Total 900 150 Balance -480 -150 - Medications Medications: Current Medications Acetaminophen (Tylenol 325mg Tab) 650 mg PO Q4 PRN PRN Reason: Pain, Mild (1-3) Aspirin (Aspirin) 325 mg PO DAILY [facility] Last Admin: 08/18/16 09:14 Dose: 325 mg Bacitracin (Bacitracin) 0 gm TOP TID [facility] Last Admin: 08/18/16 09:19 Dose: 1 applic Enoxaparin Sodium (Lovenox) 30 mg SC DAILY [facility] Last Admin: 08/18/16 09:13 Dose: 30 mg Vancomycin HCl (Vancocin 750mg/D5w 150 Ml) 150 mls @ 100 mls/hr IVPB Q24H [facility] Stop: 08/21/16 10:01 Last Admin: 08/18/16 09:20 Dose: 100 mls/hr Lisinopril (Zestril) 10 mg PO DAILY [facility] Last Admin: 08/18/16 09:14 Dose: 10 mg Magnesium Hydroxide (Milk Of Magnesia) 30 ml PO DAILY [facility] Last Admin: 08/18/16 09:13 Dose: 30 ml Megestrol Acetate (Megace) 400 mg PO DAILY [facility] Last Admin: 08/18/16 09:13 Dose: 400 mg Metoprolol Tartrate (Lopressor) 25 mg PO BID [facility] Last Admin: 08/18/16 09:14 Dose: 25 mg Ondansetron HCl (Zofran Inj) 4 mg IVP Q6H PRN PRN Reason: Nausea/Vomiting Last Admin: 08/18/16 09:18 Dose: 4 mg Pantoprazole Sodium (Protonix Ec Tab) 40 mg PO DAILY [facility] Last Admin: 08/18/16 09:14 Dose: 40 mg Rosuvastatin Calcium (Crestor) 10 mg PO HS [facility] Last Admin: 08/17/16 22:24 Dose: 10 mg Silver Sulfadiazine (Silvadene 1% 20 Gm) 1 ea TOP BID [facility] Last Admin: 08/18/16 09:19 Dose: 1 applic - Labs Labs: 08/16/16 07:51 08/16/16 07:51 PT 11.3 SECONDS (9.7-12.2) 08/15/16 00:22 INR 1.0 08/15/16 00:22 APTT 36 SECONDS (21-34) H 08/15/16 00:22 - Constitutional Appears: Non-toxic - Head Exam Head Exam: ATRAUMATIC - Eye Exam Eye Exam: EOMI - ENT Exam ENT Exam: Mucous Membranes Moist - Neck Exam Neck Exam: absent: Lymphadenopathy, Thyromegaly - Respiratory Exam Respiratory Exam: Clear to Ausculation Bilateral. absent: Rales - Cardiovascular Exam Cardiovascular Exam: REGULAR RHYTHM, Murmur - GI/Abdominal Exam GI & Abdominal Exam: Normal Bowel Sounds. absent: Organomegaly - Rectal Exam Rectal Exam: Deferred - Extremities Exam Extremities Exam: Normal Capillary Refill. absent: Calf Tenderness - Neurological Exam Neurological Exam: Alert, Oriented x3 - Psychiatric Exam Psychiatric exam: Normal Mood - Skin Skin Exam: Dry Assessment and Plan (1) CHF (congestive heart failure) Status: Acute (2) NSTEMI (non-ST elevation myocardial infarction) Status: Acute (3) Dementia Status: Chronic (4) Sepsis Status: Acute
[2016-08-18 23:10] LABS: RBC URINE 15 /hpf (0-3); URINE BACTERIA MOD (<OCC); URINE BILIRUBIN NEGATIVE (NEGATIVE); URINE BLOOD 1+ (NEGATIVE); URINE COLOR Yellow (YELLOW); URINE GLUCOSE (UA) NORMAL (Normal); URINE KETONE NEGATIVE (NEGATIVE); URINE LEUKOCYTE ESTERASE TRACE Leu/uL (Negative); URINE PROTEIN 2+ mg/dL (NEGATIVE); URINE UROBILINOGEN NORMAL mg/dL (0.2-1.0); WBC URINE 34 /hpf (0-5)
[2016-08-19] MEDS: Enoxaparin 30 mg Syringe SC SCH (09:42)
[2016-08-19] MEDS: Pantoprazole 40 mg EC Tab PO SCH (09:42)
[2016-08-19] MEDS: Megestrol Acetate 40 mg/ml Cup PO SCH (09:43)
[2016-08-19] MEDS: Bacitracin Ointment 30 GM TUBE TOP SCH ×3 (09:43→18:47)
[2016-08-19] MEDS: Magnesium Hydroxide Susp 30 ml UD PO SCH (09:43)
[2016-08-19] MEDS: Silver Sulfadiazine 1% Cream (20 gm) TOP SCH ×2 (10:20→18:47)
--- NOTE | 2016-08-19 15:31 | CP.PCM.PN ---
Subjective - Date & Time of Evaluation Date of Evaluation: 08/19/16 Time of Evaluation: 15:00 - Subjective Subjective: afebrile pt clinically same on iv abx rouse in place consultants following Objective - Vital Signs/Intake and Output Vital Signs (last 24 hours): Temp Pulse Resp BP Pulse Ox 98.7 F 99 H 20 162/85 H 96 08/19/16 07:00 08/19/16 08:19 08/19/16 07:00 08/19/16 09:45 08/19/16 07:00 Intake and Output: 08/19/16 08/19/16 06:59 18:59 Intake Total 250 380 Output Total 1100 350 Balance -850 30 - Medications Medications: Current Medications Acetaminophen (Tylenol 325mg Tab) 650 mg PO Q4 PRN PRN Reason: Pain, Mild (1-3) Aspirin (Aspirin) 325 mg PO DAILY [facility] Last Admin: 08/19/16 09:43 Dose: 325 mg Bacitracin (Bacitracin) 0 gm TOP TID [facility] Last Admin: 08/19/16 13:49 Dose: 1 applic Enoxaparin Sodium (Lovenox) 30 mg SC DAILY [facility] Last Admin: 08/19/16 09:42 Dose: 30 mg Vancomycin HCl (Vancocin 750mg/D5w 150 Ml) 150 mls @ 100 mls/hr IVPB Q24H [facility] Stop: 08/21/16 10:01 Last Admin: 08/18/16 09:20 Dose: 100 mls/hr Lisinopril (Zestril) 10 mg PO DAILY [facility] Last Admin: 08/19/16 09:42 Dose: 10 mg Magnesium Hydroxide (Milk Of Magnesia) 30 ml PO DAILY [facility] Last Admin: 08/19/16 09:43 Dose: 30 ml Megestrol Acetate (Megace) 400 mg PO DAILY [facility] Last Admin: 08/19/16 09:43 Dose: 400 mg Metoprolol Tartrate (Lopressor) 25 mg PO BID [facility] Last Admin: 08/19/16 09:45 Dose: 25 mg Ondansetron HCl (Zofran Inj) 4 mg IVP Q6H PRN PRN Reason: Nausea/Vomiting Last Admin: 08/18/16 09:18 Dose: 4 mg Pantoprazole Sodium (Protonix Ec Tab) 40 mg PO DAILY [facility] Last Admin: 08/19/16 09:42 Dose: 40 mg Rosuvastatin Calcium (Crestor) 10 mg PO HS [facility] Last Admin: 08/18/16 22:03 Dose: 10 mg Silver Sulfadiazine (Silvadene 1% 20 Gm) 1 ea TOP BID [facility] Last Admin: 08/19/16 10:20 Dose: 1 applic - Labs Labs: 08/16/16 07:51 08/16/16 07:51 PT 11.3 SECONDS (9.7-12.2) 08/15/16 00:22 INR 1.0 08/15/16 00:22 APTT 36 SECONDS (21-34) H 08/15/16 00:22 - Constitutional Appears: No Acute Distress - Head Exam Head Exam: ATRAUMATIC, NORMAL INSPECTION, NORMOCEPHALIC - Eye Exam Eye Exam: EOMI, Normal appearance, PERRL Pupil Exam: NORMAL ACCOMODATION, PERRL - ENT Exam ENT Exam: Mucous Membranes Moist - Neck Exam Neck Exam: Full ROM - Respiratory Exam Respiratory Exam: Decreased Breath Sounds - Cardiovascular Exam Cardiovascular Exam: REGULAR RHYTHM, +S1, +S2 - GI/Abdominal Exam GI & Abdominal Exam: Soft, Diminished Bowel Sounds - Rectal Exam Rectal Exam: Deferred - Neurological Exam Neurological Exam: Alert, Awake Assessment and Plan (1) Altered mental status Status: Acute (2) Dehydration Status: Acute (3) Urinary tract infection Status: Acute (4) Uncontrolled hypertension Status: Acute (5) Dementia Status: Chronic (6) Syncope Status: Acute (7) CHF (congestive heart failure) Status: Acute (8) NSTEMI (non-ST elevation myocardial infarction) Status: Acute (9) Sepsis Status: Acute (10) Acute diastolic (congestive) heart failure Status: Acute - Assessment and Plan (Free Text) Plan: [place] iv abx other meds as ordered f/u with dr roddy gallardo protonix lovenox f/u labs [place] same
--- NOTE | 2016-08-19 15:42 | CP.PCM.PN ---
Subjective - Date & Time of Evaluation Date of Evaluation: 08/19/16 Time of Evaluation: 08:00 - Subjective Subjective: 80 year old with dementia, HTN. admitted from rehab with progressive weakness, near syncope. now with elevated BNP and TNI being treated conservatively for NSTEMI but has positive blood c/s and started on IV Vanco Has MSSA blood- source unclear IN view of presentation would consider NARENDRA if possible May want to treat for endocarditis ?? Objective - Vital Signs/Intake and Output Vital Signs (last 24 hours): Temp Pulse Resp BP Pulse Ox 98.7 F 99 H 20 162/85 H 96 08/19/16 07:00 08/19/16 08:19 08/19/16 07:00 08/19/16 09:45 08/19/16 07:00 Intake and Output: 08/19/16 08/19/16 06:59 18:59 Intake Total 250 380 Output Total 1100 350 Balance -850 30 - Medications Medications: Current Medications Acetaminophen (Tylenol 325mg Tab) 650 mg PO Q4 PRN PRN Reason: Pain, Mild (1-3) Aspirin (Aspirin) 325 mg PO DAILY [facility] Last Admin: 08/19/16 09:43 Dose: 325 mg Bacitracin (Bacitracin) 0 gm TOP TID [facility] Last Admin: 08/19/16 13:49 Dose: 1 applic Enoxaparin Sodium (Lovenox) 30 mg SC DAILY [facility] Last Admin: 08/19/16 09:42 Dose: 30 mg Vancomycin HCl (Vancocin 750mg/D5w 150 Ml) 150 mls @ 100 mls/hr IVPB Q24H [facility] Stop: 08/21/16 10:01 Last Admin: 08/18/16 09:20 Dose: 100 mls/hr Lisinopril (Zestril) 10 mg PO DAILY [facility] Last Admin: 08/19/16 09:42 Dose: 10 mg Magnesium Hydroxide (Milk Of Magnesia) 30 ml PO DAILY [facility] Last Admin: 08/19/16 09:43 Dose: 30 ml Megestrol Acetate (Megace) 400 mg PO DAILY [facility] Last Admin: 08/19/16 09:43 Dose: 400 mg Metoprolol Tartrate (Lopressor) 25 mg PO BID [facility] Last Admin: 08/19/16 09:45 Dose: 25 mg Ondansetron HCl (Zofran Inj) 4 mg IVP Q6H PRN PRN Reason: Nausea/Vomiting Last Admin: 08/18/16 09:18 Dose: 4 mg Pantoprazole Sodium (Protonix Ec Tab) 40 mg PO DAILY [facility] Last Admin: 08/19/16 09:42 Dose: 40 mg Rosuvastatin Calcium (Crestor) 10 mg PO HS [facility] Last Admin: 08/18/16 22:03 Dose: 10 mg Silver Sulfadiazine (Silvadene 1% 20 Gm) 1 ea TOP BID [facility] Last Admin: 08/19/16 10:20 Dose: 1 applic - Labs Labs: 08/16/16 07:51 08/16/16 07:51 PT 11.3 SECONDS (9.7-12.2) 08/15/16 00:22 INR 1.0 08/15/16 00:22 APTT 36 SECONDS (21-34) H 08/15/16 00:22 - Constitutional Appears: Non-toxic, Cachectic, Chronically Ill - Head Exam Head Exam: NORMOCEPHALIC - Eye Exam Eye Exam: PERRL. absent: Scleral icterus - ENT Exam ENT Exam: Mucous Membranes Dry - Neck Exam Neck Exam: absent: Lymphadenopathy - Respiratory Exam Respiratory Exam: Decreased Breath Sounds, Rhonchi - Cardiovascular Exam Cardiovascular Exam: REGULAR RHYTHM, +S1, +S2 - GI/Abdominal Exam GI & Abdominal Exam: Distended, Soft. absent: Tenderness - Rectal Exam Rectal Exam: Deferred - Exam Exam: NORMAL INSPECTION Assessment and Plan (1) CHF (congestive heart failure) Status: Acute (2) NSTEMI (non-ST elevation myocardial infarction) Status: Acute (3) Syncope Status: Acute (4) Altered mental status Status: Acute (5) Dehydration Status: Acute (6) Fall Status: Acute (7) Near syncope Status: Acute (8) Uncontrolled hypertension Status: Acute (9) Staph aureus infection Status: Acute (10) Bacteremia Status: Acute
[2016-08-19] MEDS: ceFAZolin IV 2 gm in Dextrose 50 ML IVPB SCH (18:22)
--- NOTE | 2016-08-19 18:54 | US ---
Abdominal ultrasound History: Urinary retention. Evaluate for hydronephrosis. Comparison: Abdominal ultrasound dated 06/15/2016 Technique: Real-time sonography was performed through the abdomen. Findings: Liver: 12.9 centimeters length. Increased echogenicity suggestive for fatty infiltration. Gallbladder: Cholelithiasis with prominent gallbladder calculi. Normal wall thickness of 2.3 millimeters. Pericholecystic fluid noted. Negative sonographic Crouch's sign. Common bile duct mildly prominent measuring up to 5.4 millimeters. Pancreas not well visualized. Pancreatic duct measures up to 2.6 millimeters. Spleen measures 8.2 centimeters in length, within limits. Visualized aorta and IVC are preserved. Calcification and plaque noted within the aorta. Right kidney: 9.7 x 4.6 x 4.8 centimeters. Mild hydronephrosis. Lower pole hypoechoic cyst measuring 3.4 x 3.0 x 3.8 centimeters. Left kidney: Limited evaluation given adjacent air. This may be better evaluated with CT scan. 8.7 x 3.8 x 4.3 centimeters. No hydronephrosis. Midpole hypoechoic cyst measuring 3.4 x 2.6 x 2.3 centimeters with associated prominent internal septations. Impression: Fatty infiltration of the liver. Cholelithiasis with prominent calculi as well as associated pericholecystic fluid. Normal wall thickness of 2.3 millimeters. Mild prominence of the common bile duct measuring up to 5.4 millimeters. Pancreas not well visualized. Mild right renal hydronephrosis. Bilateral renal cysts as described above, one of which is mildly complex in the left kidney with some thickened internal septations. Incidentally noted are bilateral pleural effusions.
[2016-08-20] MEDS: ceFAZolin IV 2 gm in Dextrose 50 ML IVPB SCH ×3 (00:01→16:03)
--- NOTE | 2016-08-20 09:02 | CP.PCM.PN ---
Subjective - Date & Time of Evaluation Date of Evaluation: 08/20/16 Time of Evaluation: 09:00 - Subjective Subjective: Dr. Green service: Patient seen and examined in room. She is not complaining of any pain, however is confused to place and time. She did eat most of her breakfest and dinner from the previous night. No episodes of vomiting or diarrhea either according to the nursing staff. Objective - Vital Signs/Intake and Output Vital Signs (last 24 hours): Temp Pulse Resp BP Pulse Ox 97.6 F 87 18 142/94 H 97 08/20/16 07:25 08/20/16 07:25 08/20/16 07:25 08/20/16 07:25 08/20/16 07:25 Intake and Output: 08/20/16 08/20/16 06:59 18:59 Output Total 2100 Balance -2100 - Medications Medications: Current Medications Acetaminophen (Tylenol 325mg Tab) 650 mg PO Q4 PRN PRN Reason: Pain, Mild (1-3) Aspirin (Aspirin) 325 mg PO DAILY [facility] Last Admin: 08/19/16 09:43 Dose: 325 mg Bacitracin (Bacitracin) 0 gm TOP TID [facility] Last Admin: 08/19/16 18:47 Dose: 1 applic Enoxaparin Sodium (Lovenox) 30 mg SC DAILY [facility] Last Admin: 08/19/16 09:42 Dose: 30 mg Cefazolin Sodium/Dextrose (Ancef Iv 2 Gm Duplex) 50 mls @ 100 mls/hr IVPB Q8H [facility] Last Admin: 08/20/16 08:28 Dose: 100 mls/hr Lisinopril (Zestril) 10 mg PO DAILY [facility] Last Admin: 08/19/16 09:42 Dose: 10 mg Magnesium Hydroxide (Milk Of Magnesia) 30 ml PO DAILY [facility] Last Admin: 08/19/16 09:43 Dose: 30 ml Megestrol Acetate (Megace) 400 mg PO DAILY [facility] Last Admin: 08/19/16 09:43 Dose: 400 mg Metoprolol Tartrate (Lopressor) 25 mg PO BID [facility] Last Admin: 08/19/16 18:34 Dose: 25 mg Ondansetron HCl (Zofran Inj) 4 mg IVP Q6H PRN PRN Reason: Nausea/Vomiting Last Admin: 08/18/16 09:18 Dose: 4 mg Pantoprazole Sodium (Protonix Ec Tab) 40 mg PO DAILY [facility] Last Admin: 08/19/16 09:42 Dose: 40 mg Rosuvastatin Calcium (Crestor) 10 mg PO HS [facility] Last Admin: 08/19/16 21:19 Dose: 10 mg Silver Sulfadiazine (Silvadene 1% 20 Gm) 1 ea TOP BID COUNT [facility]CLUD[facility] Last Admin: 08/19/16 18:47 Dose: 1 applic - Labs Labs: 08/16/16 07:51 08/16/16 07:51 PT 11.3 SECONDS (9.7-12.2) 08/15/16 00:22 INR 1.0 08/15/16 00:22 APTT 36 SECONDS (21-34) H 08/15/16 00:22 - Constitutional Appears: Non-toxic, No Acute Distress, Confused, Cachectic, Chronically Ill - Head Exam Head Exam: NORMAL INSPECTION - Eye Exam Eye Exam: Normal appearance - ENT Exam ENT Exam: Normal Exam - Respiratory Exam Respiratory Exam: Clear to Ausculation Bilateral. absent: Rales, Rhonchi, Wheezes - Cardiovascular Exam Cardiovascular Exam: REGULAR RHYTHM, RRR, +S1, +S2. absent: Gallop, Rubs - GI/Abdominal Exam GI & Abdominal Exam: Soft, Normal Bowel Sounds. absent: Tenderness - Back Exam Back Exam: NORMAL INSPECTION - Neurological Exam Neurological Exam: Alert Assessment and Plan - Assessment and Plan (Free Text) Assessment: Assessment: 08/20: Patient eating more now, discharged her back to correction care. 08/17 Ordered for a swallow eval and also ordered pallative care consult. Patient may need TPN till a PEG tube or hospice decision is made. Previous note Patient has gram positive in blood, have ordered Vancomycin 750mg Q24 IV due to low body weight. Dr. Erwin consulted. Follow up sensitivity. (1) NSTEMI 08/16: Continue managment, Aspirin 325mg, Crestor 10mg, and Aspirin 325mg. Previous note LUDY 0.367--> 0.385--> 0.[address] Ruffin consulted- per recommendations treat medically for NSTEMI , non aggressive with poor over prognosis ASA 325mg PO daily Metoprolol tartrate 25mg PO BID Crestor 10mg PO HS (2) CHF 06/15/16 ECHO LV EF 57%, diastolic dysfunction, hypertensive heart disease BNP 4570 Lasix 40mg IV daily (3) HTN Metoprolol tartrate 25mg PO BID Lasix 40mg IV daily Monitor (4) Dementia-Failure to thrive 08/17: Swallow study and Pallative care consult Megace for appetite stimulant. Per Dr. Green, a consult for Dr. Eason was put in. However patient will need to be more stable medically before they can according to the GI Fellow Dr. Morrow (5) Prophylactic measures SCDs Lovenox 30mg SC daily Protonix 40mg PO daily All management and orders per Dr Oneida green. Discussed with attending.
--- NOTE | 2016-08-20 09:22 | CP.PCM.CON ---
History of Present Illness - History of Present Illness History of Present Illness: Palliative consult requested by Venkat Del Real Reason: goals of care discussion Patient is a 80 yo female admitted from [facility]. Patient was admitted to [facility] after fall at home, for rehab and has been ther until now. On the day of admission, patient was assisted to toilet at [facility] when she fell asleep. During this hospital stay many diagnostic studies were performed including CT and MRI of the brain and carotid Doppler. No significant findings except age related changes. Doctor Chas Freed suggested EEG which is pending. PMH: Limited due to current mental status Review of Systems - Review of Systems Systems not reviewed;Unavailable: Altered Mental Status Past Patient History - Past Medical History & Family History Past Medical History?: No - Past Social History Smoking Status: Never Smoked - CARDIAC Hx Hypertension: Yes - PULMONARY Hx Respiratory Disorders: No - NEUROLOGICAL Hx Neurological Disorder: No - HEENT Hx HEENT Problems: No - RENAL Hx Chronic Kidney Disease: No - ENDOCRINE/METABOLIC Hx Endocrine Disorders: No - HEMATOLOGICAL/ONCOLOGICAL Hx Blood Disorders: No - INTEGUMENTARY Hx Dermatological Problems: No - MUSCULOSKELETAL/RHEUMATOLOGICAL Hx Musculoskeletal Disorders: No Hx Falls: Yes - GASTROINTESTINAL Hx Gastrointestinal Disorders: No - GENITOURINARY/GYNECOLOGICAL Hx Genitourinary Disorders: No - PSYCHIATRIC Hx Substance Use: No - SURGICAL HISTORY Hx Surgeries: No - ANESTHESIA Hx Anesthesia: No Hx Anesthesia Reactions: No Meds Allergies/Adverse Reactions: Allergies Allergy/AdvReac Type Severity Reaction Status Date / Time No Known Allergies Allergy Verified 06/15/16 16:08 - Medications Medications: Current Medications Acetaminophen (Tylenol 325mg Tab) 650 mg PO Q4 PRN PRN Reason: Pain, Mild (1-3) Aspirin (Aspirin) 325 mg PO DAILY [facility] Last Admin: 08/19/16 09:43 Dose: 325 mg Bacitracin (Bacitracin) 0 gm TOP TID [facility] Last Admin: 08/19/16 18:47 Dose: 1 applic Enoxaparin Sodium (Lovenox) 30 mg SC DAILY [facility] Last Admin: 08/19/16 09:42 Dose: 30 mg Cefazolin Sodium/Dextrose (Ancef Iv 2 Gm Duplex) 50 mls @ 100 mls/hr IVPB Q8H [facility] Last Admin: 08/20/16 08:28 Dose: 100 mls/hr Lisinopril (Zestril) 10 mg PO DAILY [facility] Last Admin: 08/19/16 09:42 Dose: 10 mg Magnesium Hydroxide (Milk Of Magnesia) 30 ml PO DAILY [facility] Last Admin: 08/19/16 09:43 Dose: 30 ml Megestrol Acetate (Megace) 400 mg PO DAILY [facility] Last Admin: 08/19/16 09:43 Dose: 400 mg Metoprolol Tartrate (Lopressor) 25 mg PO BID [facility] Last Admin: 08/19/16 18:34 Dose: 25 mg Ondansetron HCl (Zofran Inj) 4 mg IVP Q6H PRN PRN Reason: Nausea/Vomiting Last Admin: 08/18/16 09:18 Dose: 4 mg Pantoprazole Sodium (Protonix Ec Tab) 40 mg PO DAILY [facility] Last Admin: 08/19/16 09:42 Dose: 40 mg Rosuvastatin Calcium (Crestor) 10 mg PO HS [facility] Last Admin: 08/19/16 21:19 Dose: 10 mg Silver Sulfadiazine (Silvadene 1% 20 Gm) 1 ea TOP BID [facility] Last Admin: 08/19/16 18:47 Dose: 1 applic Physical Exam - Constitutional Appears: Chronically Ill - Head Exam Head Exam: ATRAUMATIC - Eye Exam Eye Exam: Normal appearance Pupil Exam: NORMAL ACCOMODATION - ENT Exam ENT Exam: Mucous Membranes Dry - Neck Exam Neck exam: Positive for: Normal Inspection - Respiratory Exam Respiratory Exam: Decreased Breath Sounds - Cardiovascular Exam Cardiovascular Exam: Tachycardia - GI/Abdominal Exam GI & Abdominal Exam: Hypoactive Bowel Sounds - Rectal Exam Rectal Exam: Deferred - Exam Additional comments: Patel - Extremities Exam Extremities exam: Positive for: normal inspection - Back Exam Back exam: NORMAL INSPECTION - Neurological Exam Neurological exam: Alert, Altered - Psychiatric Exam Psychiatric exam: Flat Affect - Skin Skin Exam: Normal Color Results - Vital Signs Recent Vital Signs: Last Vital Signs Temp 97.6 F 08/20/16 07:25 Pulse 87 08/20/16 07:25 Resp 18 08/20/16 07:25 BP 142/94 H 08/20/16 07:25 Pulse Ox 97 08/20/16 07:25 - Labs Result Diagrams: 08/16/16 07:51 08/16/16 07:51 Labs: Laboratory Results - last 24 hr 08/19/16 08/20/16 16:23 07:30 ESR 14 C-React Prot High Sens 4.73 H Procalcitonin 0.06 L Assessment & Plan - Assessment and Plan (Free Text) Assessment: Palliative consult. Code status Full Code. No advance directive on chart.PPS 20 % ROS unobtainable from patient due to AMS. I reviewed medical records, all diagnostic studies, examined and interviewed patient in the bed. Interview was limited due to patient's condition. ROS obtained from charts. Patient is alert, but very sleepy. Patient is wakeful only for few seconds than goes back to sleep. Patient tends to answer questions appropriately. When asked how was she feeling today patient answered : sick to my stomach". Breakfast tray was in front of patient untouched. IVF on board. Urine clear, total amount recorded 600 cc/ 24 hr. Breath sounds are diminished, abdomen is flat, bowel sounds present. Patient looks cachectic. BP 151/76, HR 91, O2Sat 98 % RA. BC + Staph. Patient is S/P Vanco. WBC 8.8. I called patient's at the number provided on the chart. There was no voicemail sat up to leave message. Patient suggested her Asher should be in shortly. Impression * Patient is lethargic * Poor PO intake, inadequate nutrition at risk for dehydration. * Patient complains of nausea * Patient is unable to advocate for herself due to AMS * Patient needs max assistance with ADLs Suggestion * Provide artificial hydration * Assist with each meal * Reorient X 3 on each interaction with patient * Monitor urine output I will continue to fallow with patient's and hopefully meet with him for goals of care discussion. Thank you for consulting palliative care.
[2016-08-20] MEDS: Pantoprazole 40 mg EC Tab PO SCH (10:00)
[2016-08-20 10:09] LABS: BASO # 0.1 K/uL (0.0-0.2); BASO % 1.7 % (0.0-2.0); EOS # 1.3 K/uL (0.0-0.7); EOS % 16.5 % (0.0-4.0); LYMPH # 1.4 K/uL (1.0-4.3); LYMPH % 18.1 % (20.0-40.0); MEAN CELL VOLUME 93.7 fL (81.0-99.0); MEAN CORPUSCULAR HEMOGLOBIN 30.7 pg (27.0-31.0); MEAN CORPUSCULAR HGB CONC 32.7 g/dL (33.0-37.0); MONO # 0.6 K/uL (0.0-0.8); MONO % 7.6 % (0.0-10.0); RED CELL DISTRIBUTION WIDTH 13.5 % (11.5-14.5); WHITE BLOOD COUNT 7.7 K/uL (4.8-10.8)
[2016-08-20 10:12] LABS: CHLORIDE 100 mmol/L (98-107); SODIUM 137 mmol/L (132-148)
[2016-08-20 10:13] LABS: POTASSIUM 4.6 mmol/L (3.6-5.2)
[2016-08-20 10:14] LABS: GFR AFRICAN-AMERICAN > 60
[2016-08-20 10:15] LABS: ALB/GLOB RATIO 1.1 (1.0-2.1); ALKALINE PHOSPHATASE 56 U/L (38-126); ALT/SGPT 19 U/L (9-52); AST/SGOT 18 U/L (14-36); BILIRUBIN,TOTAL < 0.1 mg/dL (0.2-1.3); BLOOD UREA NITROGEN 23 mg/dL (7-17); CALCIUM 7.9 mg/dl (8.6-10.4); CARBON DIOXIDE 29 mmol/L (22-30); GLUCOSE,RANDOM 75 mg/dL (65-105); PHOSPHOROUS 2.5 mg/dL (2.5-4.5); TOTAL PROTEIN 4.6 g/dL (6.3-8.3)
[2016-08-20 10:16] LABS: MAGNESIUM 2.3 mg/dL (1.6-2.3)
[2016-08-20] MEDS: Magnesium Hydroxide Susp 30 ml UD PO SCH (11:32)
[2016-08-20] MEDS: Megestrol Acetate 40 mg/ml Cup PO SCH (11:32)
[2016-08-20] MEDS: Enoxaparin 30 mg Syringe SC SCH (11:32)
[2016-08-20] MEDS: Silver Sulfadiazine 1% Cream (20 gm) TOP SCH (11:34)
[2016-08-20] MEDS: Bacitracin Ointment 30 GM TUBE TOP SCH ×2 (11:43→14:59)
[2016-08-20] MEDS ORDERED: Pantoprazole 40 mg Susp UD PO SCH (11:45)
--- NOTE | 2016-08-20 12:48 | CARD ---
APPROVED REPORT EXAM: Two-dimensional and M-mode echocardiogram with Doppler and color Doppler. Other Information Quality : GoodRhythm : INDICATION Infection:Rule out subacute bacterial endocarditis Syncope Congestive Heart Failure Non STEMI HIGH TROPONIN RISK FACTORS Hypertension M-Mode DIMENSIONS RVDd1.52 (2.1-3.2cm)Left Atrium (MM)2.52 (2.5-4.0cm) IVSd1.18 (0.7-1.1cm)Aortic Root3.31 (2.2-3.7cm) LVDd3.92 (4.0-5.6cm)Aortic Cusp Exc.1.94 (1.5-2.0cm) PWd1.15 (0.7-1.1cm)FS (%) 46 % LVDs2.13 (2.0-3.8cm)LVEF (%)78 (>50%) Aortic Valve AI P 1/2 [id number] Mitral Valve MV E Jgazbtnn78.2cm/sMV A Ugrsowql482.8cm/sE/A ratio0.4 TDI E/Lateral E'0.0E/Medial E'0.0 Tricuspid Valve TR Peak [id number]/sTR Peak Gr.83tuPlRFKE76ufMe LEFT VENTRICLE There is mild to moderate concentric left ventricular hypertrophy. The left ventricular systolic function is normal. The left ventricular ejection fraction is within the normal range. There is normal LV segmental wall motion. Transmitral Doppler flow pattern is Grade I-abnormal relaxation pattern. RIGHT VENTRICLE The right ventricular systolic function is normal. ATRIA The left atrium size is normal. The right atrium size is normal. AORTIC VALVE The aortic valve is grossly normal in structure. There is mild aortic regurgitation. MITRAL VALVE Mitral annular calcification is mild to moderate. There is no mitral valve regurgitation noted. TRICUSPID VALVE The tricuspid valve is normal in structure. There is mild tricuspid regurgitation. PULMONIC VALVE The pulmonary valve is normal in structure. GREAT VESSELS The aortic root is mildly enlarged. The IVC is normal in size and collapses >50% with inspiration. PERICARDIAL EFFUSION There is no pericardial effusion. <Conclusion> There is mild to moderate concentric left ventricular hypertrophy. The left ventricular systolic function is normal. There is normal LV segmental wall motion. Transmitral Doppler flow pattern is Grade I-abnormal relaxation pattern. The right ventricular systolic function is normal. There is mild aortic regurgitation. Mitral annular calcification is mild to moderate. The aortic root is mildly enlarged. There is no pericardial effusion.
--- NOTE | 2016-08-20 13:03 | CP.PCM.PN ---
Subjective - Date & Time of Evaluation Date of Evaluation: 08/20/16 Time of Evaluation: 12:00 - Subjective Subjective: No shortness of breath, on treatment for septicemia, repeat echo with normal left ventricular contractility Objective - Vital Signs/Intake and Output Vital Signs (last 24 hours): Temp Pulse Resp BP Pulse Ox 97.6 F 87 18 154/88 H 97 08/20/16 07:25 08/20/16 07:25 08/20/16 07:25 08/20/16 11:33 08/20/16 07:25 Intake and Output: 08/20/16 08/20/16 06:59 18:59 Output Total 2100 Balance -2100 - Medications Medications: Current Medications Acetaminophen (Tylenol 325mg Tab) 650 mg PO Q4 PRN PRN Reason: Pain, Mild (1-3) Aspirin (Aspirin) 325 mg PO DAILY [facility] Last Admin: 08/20/16 11:32 Dose: 325 mg Bacitracin (Bacitracin) 0 gm TOP TID [facility] Last Admin: 08/20/16 11:43 Dose: 1 applic Enoxaparin Sodium (Lovenox) 30 mg SC DAILY [facility] Last Admin: 08/20/16 11:32 Dose: 30 mg Cefazolin Sodium/Dextrose (Ancef Iv 2 Gm Duplex) 50 mls @ 100 mls/hr IVPB Q8H [facility] Last Admin: 08/20/16 08:28 Dose: 100 mls/hr Lisinopril (Zestril) 10 mg PO DAILY [facility] Last Admin: 08/20/16 11:33 Dose: 10 mg Magnesium Hydroxide (Milk Of Magnesia) 30 ml PO DAILY [facility] Last Admin: 08/20/16 11:32 Dose: 30 ml Megestrol Acetate (Megace) 400 mg PO DAILY [facility] Last Admin: 08/20/16 11:32 Dose: 400 mg Metoprolol Tartrate (Lopressor) 25 mg PO BID [facility] Last Admin: 08/20/16 11:33 Dose: 25 mg Ondansetron HCl (Zofran Inj) 4 mg IVP Q6H PRN PRN Reason: Nausea/Vomiting Last Admin: 08/18/16 09:18 Dose: 4 mg Pantoprazole Sodium (Protonix Susp) 40 mg PO DAILY [facility] Last Admin: 08/20/16 11:44 Dose: 40 mg Rosuvastatin Calcium (Crestor) 10 mg PO HS [facility] Last Admin: 08/19/16 21:19 Dose: 10 mg Silver Sulfadiazine (Silvadene 1% 20 Gm) 1 ea TOP BID [facility] Last Admin: 08/20/16 11:34 Dose: 1 applic - Labs Labs: 08/20/16 07:30 08/20/16 09:59 PT 11.3 SECONDS (9.7-12.2) 08/15/16 00:22 INR 1.0 08/15/16 00:22 APTT 36 SECONDS (21-34) H 08/15/16 00:22 - Constitutional Appears: Non-toxic - Head Exam Head Exam: ATRAUMATIC - Eye Exam Eye Exam: EOMI - ENT Exam ENT Exam: Mucous Membranes Moist - Neck Exam Neck Exam: absent: Lymphadenopathy, Thyromegaly - Respiratory Exam Respiratory Exam: Clear to Ausculation Bilateral. absent: Rales - Cardiovascular Exam Cardiovascular Exam: REGULAR RHYTHM, Murmur - GI/Abdominal Exam GI & Abdominal Exam: Normal Bowel Sounds. absent: Organomegaly - Rectal Exam Rectal Exam: Deferred - Extremities Exam Extremities Exam: Normal Capillary Refill. absent: Calf Tenderness - Neurological Exam Neurological Exam: Alert, Oriented x3 - Psychiatric Exam Psychiatric exam: Normal Mood - Skin Skin Exam: Dry Assessment and Plan (1) CHF (congestive heart failure) Status: Acute (2) NSTEMI (non-ST elevation myocardial infarction) Status: Acute (3) Dementia Status: Chronic (4) Sepsis Status: Acute
--- NOTE | 2016-08-20 15:08 | PCM.HF ---
Heart Failure Core Measure - Heart Failure Ejection Fraction: 40 % or Greater (LVEF 78%) Left Ventricular Function to be assessed after discharge: No NEGRITA Inhibitor Prescribed: Yes Beta-Jose Prescribed: None Contraindication/Reason for not providing: NOT RX BY MD Angiotensin II Receptor Jose Prescribed: No Contraindication/Reason for not providing: ON NEGRITA AnticoagulationTherapy for Atrial Fibrillation/Atrialflutter: No Contraindication/Reason for not providing: NO AFIB Aldosterone Antagonist Prescribed: No Contraindication/Reason for not providing: RENAL DYSFUNCTION Hydralazine Nitrate Prescribed: No Contraindication/Reason for not providing: LVEF >40% Implantable Cardioverter Defibrillator Therapy: No Contraindication/Reason for not providing: LVEF >40% Cardiac Resynchronization Therapy Prescribed: No Contraindication/Reason for not providing: LVEF >40% - Follow up Will be discharged to: Long-Term Facility Follow Up Date (must be within 7 days from discharge): 08/23/16 Follow Up Time: 09:00
[2016-08-20 17:04] VITALS: BP 126/81; PULSE 82; RESP 20; TEMP 97.4; O2SAT 96
--- NOTE | 2016-08-20 18:48 | CP.PCM.PN ---
Subjective - Date & Time of Evaluation Date of Evaluation: 08/20/16 Time of Evaluation: 01:00 - Subjective Subjective: clinically same s/p palliative care eval ongoing iv rx Objective - Vital Signs/Intake and Output Vital Signs (last 24 hours): Temp Pulse Resp BP Pulse Ox 97.4 F L 82 20 126/81 96 08/20/16 17:00 08/20/16 17:00 08/20/16 17:00 08/20/16 17:00 08/20/16 17:00 Intake and Output: 08/20/16 08/20/16 06:59 18:59 Intake Total 150 Output Total 2100 575 Balance -2100 -425 - Labs Labs: 08/20/16 07:30 08/20/16 09:59 PT 11.3 SECONDS (9.7-12.2) 08/15/16 00:22 INR 1.0 08/15/16 00:22 APTT 36 SECONDS (21-34) H 08/15/16 00:22 - Constitutional Appears: Well - Head Exam Head Exam: ATRAUMATIC, NORMAL INSPECTION, NORMOCEPHALIC - Eye Exam Eye Exam: EOMI, Normal appearance, PERRL Pupil Exam: NORMAL ACCOMODATION, PERRL - ENT Exam ENT Exam: Mucous Membranes Moist, Normal Exam - Neck Exam Neck Exam: Full ROM, Normal Inspection. absent: Lymphadenopathy - Respiratory Exam Respiratory Exam: Decreased Breath Sounds - Cardiovascular Exam Cardiovascular Exam: REGULAR RHYTHM, +S1, +S2 - GI/Abdominal Exam GI & Abdominal Exam: Soft, Diminished Bowel Sounds - Rectal Exam Rectal Exam: Deferred - Neurological Exam Neurological Exam: Alert, Awake Assessment and Plan (1) Altered mental status Status: Acute (2) Dehydration Status: Acute (3) Urinary tract infection Status: Acute (4) Uncontrolled hypertension Status: Acute (5) Dementia Status: Chronic (6) Syncope Status: Acute (7) CHF (congestive heart failure) Status: Acute (8) NSTEMI (non-ST elevation myocardial infarction) Status: Acute (9) Sepsis Status: Acute (10) Acute diastolic (congestive) heart failure Status: Acute - Assessment and Plan (Free Text) Plan: case discussed with multiple consultants on board [place] iv abx mx as ordered palliative care
--- NOTE | 2016-08-20 22:01 | EEG ---
DATE: 08/15/2016 This is a 16-channel electroencephalogram of awake and drowsy adult. During the study, photic stimul ation was performed. Hyperventilation was not performed. The resting electroencephalogram consists of 30-40 microvolt, 8-10 Hz alpha activity seen at parietal and occipital leads. Anteriorly fast activity superimposed with 2-3 Hz. Delta activity seen at fro ntal and central leads which followed with high amplitude delta activity seen, which is consistent wi th early drowsiness. The photic stimulation did not evoke driving response noted at 2-20 Hz. EKG le ad shows sinus tachycardia. IMPRESSION: This is a normal electroencephalogram of awake and drowsy adult. During the study, neit her electroencephalographic paroxysmal activities nor focal slowing noted. Abdiaziz Doherty MD cc: [id number] TT: 08/20/2016 22:00:41 Confirmation # [id number] Dictation # [id number] jn
--- NOTE | 2016-08-22 07:46 | CON ---
DATE: 08/16/2016 CHIEF COMPLAINT: Urinary retention. HISTORY OF PRESENT ILLNESS: The patient was admitted to the hospital with confusion and CHF. While in the hospital, she was found to be in urinary retention. The patient is still confused and is a po or historian. She gives no history of prior voiding problems. Further history is difficult becau se the patient is confused. REVIEW OF SYSTEMS: RESPIRATORY: The patient complains of no complaints. CARDIAC: The patient has no history of chest pain or palpitations. GASTROINTESTINAL: The patient is not complaining of constipation, diarrhea or change in bowel habits . ORTHOPEDIC: The patient is not complaining of any limitation of movements. She does complain of gen eralized weakness, which seems to have caused her fall. GYNECOLOGIC: The patient denies any previous [employer] surgery. SOCIAL HISTORY: The patient does not smoke and does not drink. She lives with her son. PHYSICAL EXAMINATION: VITAL SIGNS: Within normal limits. HEENT: Within normal limits. NECK: Supple. There are no bruits, nodes, or masses. NEUROLOGIC: The patient is not oriented times time and place. She does respond to questions, but is a poor historian. GASTROINTESTINAL: There is no history of diarrhea or change in bowel habits. ORTHOPEDIC: There is no history of prior fracture. CARDIAC: The patient has no history of chest pain. PHYSICAL EXAMINATION: GENERAL: Awake, alert, and oriented x 3. HEAD, EARS, EYES, NOSE AND THROAT: Within normal limits. NECK: Supple. There are no bruits, nodes, or masses. CHEST: Clear bilaterally. There are no rales or rhonchi. HEART: Normal sinus rhythm, no murmur. ABDOMEN: Soft, nontender. GENITOURINARY: There is Patel catheter in place. VAGINAL AND RECTAL: Refused by the patient. IMPRESSION: Urinary retention. SUGGEST: Since the patient is confused, I suggest leaving the Patel in and waiting for maximal impro vement in her mentation. The patient should be referred as an outpatient for full urological evaluat ion once mental status has returned to normal. Quoc Avila MD cc: [id number] TT: 08/21/2016 13:42:48 Confirmation # [id number] Dictation # [id number]
== END 2016-08-20 18:15 | DRG 280 ==
LOC: C.ER 15:51 → C.9E 18:52 → C.6T 23:47
PROVIDERS: ADMIT Internal Medicine Nephrology; ATTEND Internal Medicine Nephrology
DX: I21.4 Non-ST elevation (NSTEMI) myocardial infarction (principal); I50.31 Acute diastolic (congestive) heart failure; A41.9 Sepsis, unspecified organism; N39.0 Urinary tract infection, site not specified; R55 Syncope and collapse; I11.0 Hypertensive heart disease with heart failure; E86.0 Dehydration; R33.9 Retention of urine, unspecified; R41.82 Altered mental status, unspecified; F03.90 Unspecified dementia, unspecified severity, without behavioral disturbance, psychotic disturbance, mood disturbance, and anxiety; A49.01 Methicillin susceptible Staphylococcus aureus infection, unspecified site; B96.20 Unspecified Escherichia coli [E. coli] as the cause of diseases classified elsewhere; R00.0 Tachycardia, unspecified; Z91.81 History of falling; Z79.82 Long term (current) use of aspirin